=== PATIENT | female | born 1945 | race Caucasian/White ===

== ENCOUNTER 2022-08-20 13:45 | Inpatient (IN) | payer MEDICARE, OTHER ==
[~2022-08-20] VITALS: Ht 172.7 cm; Wt 66.2 kg
[2022-08-20] MEDS ORDERED: BLOOD SUGAR DIAGNOSTIC 1 EACH STRIP IN ONE (15:30)
[2022-08-20] MEDS ORDERED: MAGNESIUM HYDROXIDE 30 ML UDC PO PRN (15:30)
[2022-08-20] MEDS ORDERED: ACETAMINOPHEN 325 MG TABLET PO PRN (15:30)
[2022-08-20] MEDS ORDERED: TEMAZEPAM 7.5 MG CAPSULE PO PRN (15:30)
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
[2022-08-20 16:00] VITALS: BP 114/66
[2022-08-20 16:41] VITALS: BP 114/66
[2022-08-20] MEDS: LORAZEPAM 0.5 MG TABLET PO PRN (18:05)
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
[2022-08-20 19:59] VITALS: BP 98/52
[2022-08-21 07:41] LABS: CHOLESTEROL 150 mg/dL (<200); HDL CHOLESTEROL 58 mg/dL (40-60); LDL 82 mg/dL (0-99); TRIGLYCERIDES 56 mg/dL (30-150)
[2022-08-21 07:45] LABS: ALANINE AMINOTRANSFERASE 43 U/L (12-78); ALBUMIN 2.6 g/dL (3.4-5.0); ALKALINE PHOSPHATASE 181 U/L (46-116); ASPARTATE AMINOTRANSFERASE 44 U/L (15-37); BILIRUBIN,TOTAL 0.5 mg/dL (0.2-1.0); CARBON DIOXIDE 28 mmol/L (21-32); CHLORIDE 102 mmol/L (98-107); CREATININE 0.9 mg/dL (0.6-1.3); GLUCOSE 91 mg/dL (74-106); POTASSIUM 4.1 mmol/L (3.5-5.1); SODIUM SERUM 135 mmol/L (136-145); TOTAL PROTEIN, SERUM 8.8 g/dL (6.4-8.2); UREA NITROGEN, BLOOD 31 mg/dL (7-18)
[2022-08-21 08:00] VITALS: BP 108/63
--- NOTE | 2022-08-21 09:25 | NUR ---
RAFI Initial Discharge Plan: Patient was unable to give accurate address. Pt gave this law writer husbands number Jt ([phone]) and requested for this law writer to contact. Pt will possibly need a SNF. RAFI will work with the MD, family, and treatment team to help coordinate appropriate discharge.
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
--- NOTE | 2022-08-21 09:26 | NUR ---
Treatment Plan: Pt appeared confused and refused to sign the treatment plan.
--- NOTE | 2022-08-21 12:09 | NUR ---
SW Family Contact: Pt gave this business writer husbands number Jt ([phone]) but number did not go through. Invalid number.
[2022-08-21] MEDS: DIVALPROEX SODIUM 250 MG TABLET.DR PO SCH ×2 (12:44→17:29)
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
--- NOTE | 2022-08-21 15:50 | NUR ---
NURSE NOTE: TOOK PT TO CT VIA WHEELCHAIR. PT IN STABLE CONDITION. RETURNED TO GPS FLOOR (ACTIVITY ROOM) VIA WHEELCHAIR. PT IN STABLE COND. WILL CONT TO MONITOR.
[2022-08-21 16:00] VITALS: BP 100/50
--- NOTE | 2022-08-21 19:35 | NUR ---
RN OPENING NOTES; RECEIVED PT IN BED SLEEPING BUT EASY TO AROUSED NO SIGN SOB/DISTRESS NOTED,BREATHING EVEN AND UNLABORED,NO UNUSUAL BEHAVIOR AT THIS TIME,SAFETY MEASURE INPLACE,CALL LIGHT WITHIN REACH,WILL CONTINUE TO MONITOR.
[2022-08-21 20:00] VITALS: BP 100/58
[2022-08-22 08:00] VITALS: BP 99/63
[2022-08-22] MEDS: DIVALPROEX SODIUM 250 MG TABLET.DR PO SCH ×3 (08:43→16:51)
[2022-08-22 16:00] VITALS: BP 103/60
--- NOTE | 2022-08-22 18:03 | NUR ---
RN-NOTES PATIENT IS VISIBLE IN THE UNIT,A/O X2 GUARDED,NO ACUTE DISTRESS NOTED. COMPLIANT WITH MEDICATIONS.NOTED PATIENT WITH EPISODE OF CRYING. REDIRECTED AND REASSURED PATIENT.PATIENT IS AMBULATORY WITH STEADY GAIT. ALL NEEDS ATTENDED AND MET. WILL CONT. MONITORING FOR SAFETY AND BEHAVIOR. WILL ENDORSE TO INCOMING NURSE FOR CONTINUITY OF CARE.
--- NOTE | 2022-08-22 18:41 | NUR ---
RN-NOTES NOTED PATIENT VERY ANGRY AND AGITATED AFTER TALKING TO HER IN THE PHONE. REDIRECTED AND OFFERED ATIVAN BUT PATIENT REFUSED AND THROW THE ATIVAN ON THE FLOOR . STATED" I DON'T NEED IT AND I'M SORRY FOR MY BEHAVIOR, IT WON'T HAPPEN AGAIN". OFFERED X3.
[2022-08-22 20:00] VITALS: BP 123/59
[2022-08-23 08:00] VITALS: BP 98/58
[2022-08-23] MEDS: DIVALPROEX SODIUM 250 MG TABLET.DR PO SCH ×3 (08:33→16:35)
[2022-08-23] MEDS: LORAZEPAM 0.5 MG TABLET PO PRN ×2 (08:40→16:34)
--- NOTE | 2022-08-23 08:41 | NUR ---
SNF Referral: SW sent clinicals to [facility] to chidi Peña ([phone]) for placement. SW sent H & P, progress notes, and medication list.
--- NOTE | 2022-08-23 08:42 | NUR ---
RN-NOTES NOTED PATIENT WITH GUARDED AND IRRITABLE BEHAVIOR. ATIVAN 0.5MG P.O GIVEN PRN ORDER. WILL CONT. MONITORING FOR SAFETY AND BEHAVIOR.
--- NOTE | 2022-08-23 09:45 | NUR ---
RN-NOTES PATIENT IN THE ROOM LYING IN BED AWAKE, A/O X2 CALM,NO ACUTE DISTRESS NOTED.
[2022-08-23 16:00] VITALS: BP 110/62
--- NOTE | 2022-08-23 16:40 | NUR ---
RN-NOTES NOTED PATIENT ANXIOUS PACING IN AND OUT HER ROOM, ATIVAN 0.5MG P.O GIVEN PRN ORDER. WILL CONT. MONITORING FOR SAFETY AND BEHAVIOR.
--- NOTE | 2022-08-23 19:04 | NUR ---
RN-NOTES PATIENT IS VISIBLE IN THE UNIT,A/O X2 GUARDED,NO ACUTE DISTRESS NOTED. COMPLIANT WITH MEDICATIONS.NOTED PATIENT WITH EPISODE OF ANXIETY. REDIRECTED AND ANTI ANXIETY PRN MED. GIVEN.PATIENT IS AMBULATORY WITH STEADY GAIT. ALL NEEDS ATTENDED AND MET. WILL CONT. MONITORING FOR SAFETY AND BEHAVIOR. WILL ENDORSE TO INCOMING NURSE FOR CONTINUITY OF CARE.
[2022-08-23] MEDS: MAG HYDROX/AL HYDROX/SIMETH 30 ML UDC PO PRN (20:33)
[2022-08-23 20:47] VITALS: BP 106/62
[2022-08-24 08:00] VITALS: BP 109/62
[2022-08-24] MEDS: DIVALPROEX SODIUM 250 MG TABLET.DR PO SCH ×3 (09:01→17:39)
[2022-08-24 16:00] VITALS: BP 125/69
[2022-08-24] MEDS: MAG HYDROX/AL HYDROX/SIMETH 30 ML UDC PO PRN (19:38)
[2022-08-24 20:17] VITALS: BP 122/66
[2022-08-25] MEDS: DIVALPROEX SODIUM 250 MG TABLET.DR PO SCH ×3 (08:16→17:01)
[2022-08-25 08:27] VITALS: BP 99/55
--- NOTE | 2022-08-25 09:13 | NUR ---
RN-CO: RECEIVED PATIENT RESTING IN HER BED,A/O X2 GUARDED, NO ACUTE DISTRESS NOTED. COMPLIANT WITH DAILY MEDICATIONS.AMBULATORY STEADY GAIT.ALL NEEDS ATTENDED AND ANTICIPATED. WILL CONTINUE MONITORING Q15MIN FOR SAFETY AND BEHAVIOR.
[2022-08-25 16:00] VITALS: BP 128/63
[2022-08-25 21:01] VITALS: BP 140/64
[2022-08-26 08:00] VITALS: BP 98/52
--- NOTE | 2022-08-26 09:17 | NUR ---
Court Notification: RAFI contacted patient's Jt ([phone]) to notify of 0000 hearing. RAFI left a voicemail.
--- NOTE | 2022-08-26 09:44 | NUR ---
Court Hearing: Patient's court hearing for 4330 was today and it was upheld for GD.
[2022-08-26] MEDS: MAG HYDROX/AL HYDROX/SIMETH 30 ML UDC PO PRN (09:50)
[2022-08-26] MEDS: DIVALPROEX SODIUM 250 MG TABLET.DR PO SCH ×3 (09:50→16:59)
--- NOTE | 2022-08-26 09:56 | NUR ---
SNF Referral: RAFI sent clinicals to [facility] to chidi Peña ([phone]) for placement. RAFI sent H & P, progress notes, and medication list. Addendum: 08/26/22 at 0957 by RAFI [facility] SNF Contact: RAFI spoke with [facility] to chidi Peña ([phone]) who stated pt is accepted.
--- NOTE | 2022-08-26 09:57 | NUR ---
SNF Contact: SW spoke with [facility] to chidi Peña ([phone]) who stated pt is accepted.
[2022-08-26] MEDS: ESCITALOPRAM OXALATE (10 MG) 10 MG TABLET PO SCH (11:26)
[2022-08-26 16:00] VITALS: BP 113/72
[2022-08-26 19:35] VITALS: BP 144/57
[2022-08-26 19:41] VITALS: BP 144/51
[2022-08-26] MEDS: QUETIAPINE FUMARATE 25 MG TABLET PO SCH (21:11)
[2022-08-27 09:22] VITALS: BP 105/59
[2022-08-27] MEDS: DIVALPROEX SODIUM 250 MG TABLET.DR PO SCH ×3 (09:22→16:26)
[2022-08-27] MEDS: ESCITALOPRAM OXALATE (10 MG) 10 MG TABLET PO SCH (09:22)
[2022-08-27 16:00] VITALS: BP 111/61
[2022-08-27] MEDS: ENSURE ENLIVE 237 ML LIQUID (VANILLA) PO SCH (16:26)
[2022-08-27 19:55] VITALS: BP 111/54
[2022-08-27 20:57] VITALS: BP 111/54
[2022-08-27] MEDS: QUETIAPINE FUMARATE 25 MG TABLET PO SCH (21:40)
[2022-08-28 08:00] VITALS: BP 113/57
[2022-08-28] MEDS: ENSURE ENLIVE 237 ML LIQUID (VANILLA) PO SCH ×2 (08:04→16:15)
[2022-08-28] MEDS: ESCITALOPRAM OXALATE (10 MG) 10 MG TABLET PO SCH (08:38)
[2022-08-28] MEDS: DIVALPROEX SODIUM 250 MG TABLET.DR PO SCH ×3 (08:38→16:15)
[2022-08-28] MEDS ORDERED: VENLAFAXINE XR 75 MG CAP.SR.24H PO SCH (14:00)
[2022-08-28] MEDS: VENLAFAXINE XR 37.5 MG CAP.SR.24H PO SCH (14:33)
[2022-08-28 16:00] VITALS: BP 114/63
[2022-08-28 19:52] VITALS: BP 109/57
[2022-08-28] MEDS: QUETIAPINE FUMARATE 25 MG TABLET PO SCH (21:48)
[2022-08-29 08:00] VITALS: BP 115/62
[2022-08-29] MEDS: ENSURE ENLIVE 237 ML LIQUID (VANILLA) PO SCH ×2 (08:15→17:31)
[2022-08-29] MEDS: DIVALPROEX SODIUM 250 MG TABLET.DR PO SCH ×3 (08:27→16:33)
[2022-08-29] MEDS: VENLAFAXINE XR 37.5 MG CAP.SR.24H PO SCH (08:27)
[2022-08-29] MEDS: MAG HYDROX/AL HYDROX/SIMETH 30 ML UDC PO PRN (15:13)
--- NOTE | 2022-08-29 15:15 | NUR ---
RN-NOTES PATIENT C/O INDIGESTION. MAALOX 30ML GIVEN PRN ORDER.
[2022-08-29 16:00] VITALS: BP 135/63
--- NOTE | 2022-08-29 18:31 | NUR ---
RN-NOTES PATIENT IS VISIBLE IN THE UNIT A/O X2,QUIET,COOPERATIVE WITH THE STAFF AND CARE. COMPLIANT WITH MEDICATIONS. NEEDS MINIMAL ASSIST WITH ADL'S. AMBULATORY STEADY GAIT. ABLE TO MAKE NEEDS KNOWN TO THE STAFF.ALL NEEDS ATTENDED AND ANTICIPATED. WILL CONT. MONITORING FOR SAFETY FOR BEHAVIOR. WILL ENDORSE TO INCOMING NURSE FOR CONTINUITY OF CARE.
[2022-08-29 20:00] VITALS: BP 122/60
--- NOTE | 2022-08-29 20:09 | NUR ---
RN NOTES: PATIENT RESTING IN ROOM, AWAKE, VISIBLE IN THE UNIT, CONFUSED, FORGETFUL, DISORGANIZED, EASILY AGITATED,GUARDED, ANXIOUS AT TIMES BUT REDIRECTABLE AT THIS TIME. NO ACUTE DISTRESS NOTED.ENCOURAGED TO VERVALIZED ANY FEELING OR CONCERN, COMPLIANT WITH MEDICATIONS. SAFETY MEASURES IN PLACE. WILL CONTINUE. MONITORING Q 15 MIN FOR SAFETY AND BEHAVIOR.
[2022-08-29] MEDS: QUETIAPINE FUMARATE 25 MG TABLET PO SCH (21:10)
[2022-08-30 08:00] VITALS: BP 113/62
[2022-08-30] MEDS: VENLAFAXINE XR 37.5 MG CAP.SR.24H PO SCH (08:27)
[2022-08-30] MEDS: DIVALPROEX SODIUM 250 MG TABLET.DR PO SCH ×3 (08:27→16:26)
[2022-08-30] MEDS: ENSURE ENLIVE 237 ML LIQUID (VANILLA) PO SCH ×2 (08:27→17:22)
[2022-08-30] MEDS: MAG HYDROX/AL HYDROX/SIMETH 30 ML UDC PO PRN ×2 (15:32→20:35)
[2022-08-30 16:00] VITALS: BP 97/59
--- NOTE | 2022-08-30 18:55 | NUR ---
RN-NOTES PATIENT IS VISIBLE IN THE UNIT A/O X2,QUIET,STAYS IN THE ROOM PLAYING CARDS.COOPERATIVE WITH THE STAFF AND CARE. COMPLIANT WITH MEDICATIONS. NEEDS MINIMAL ASSIST WITH ADL'S. AMBULATORY STEADY GAIT. ABLE TO MAKE NEEDS KNOWN TO THE STAFF.ALL NEEDS ATTENDED AND ANTICIPATED. WILL CONT. MONITORING FOR SAFETY FOR BEHAVIOR. WILL ENDORSE TO INCOMING NURSE FOR CONTINUITY OF CARE.
--- NOTE | 2022-08-30 19:30 | NUR ---
GPS RN NOTE, RECEIVED PATIENT AWAKE AND IN BED, NO S/S OR COMPLAINTS OF PAIN AT THIS TIME. PATIENT IS DISPLAYING NO S/S OF APPARENT DISTRESS AT THIS TIME. PATIENT BREATHING IS UNLABORED WITH EQUAL RISE AND FALL OF THE CHEST. PATIENT IS ALERT AND ORIENTED X 2 ON ROOM AIR WITH A SPO2 97%. PATIENT IS COMPLIANT WITH MEDICATIONS, CALM, FORGETFUL, GUARDED, ISOLATIVE, MAKES NEEDS KNOWN, AND COOPERATIVE. PATIENT DENIES SUICIDAL AND HOMICIDAL IDEATIONS AT THIS TIME. PATIENT ASSISTED WITH TURNING AND REPOSITIONING Q2HR AND PRN FOR COMFORT AND CIRCULATION. PATIENT HAS NO NEEDS AT THIS TIME. PATIENT EDUCATED ON THE USE OF THE CALL TYLER. PATIENT BED SIDE RAILS UP X 2 FOR SAFETY. PATIENT BED IS LOCKED, LOW, WITH BED ALARM ON. WILL CONTINUE TO MONITOR THIS PATIENT Q15 MINUTES WITH THE HELP OF STAFF TO MAINTAIN SAFETY.
--- NOTE | 2022-08-30 20:35 | NUR ---
GPS RN NOTE, PATIENT HAS A COMPLAINT OF HAVING INDIGESTION AND IS REQUESTING MAALOX AT THIS TIME. PATIENT VITAL SIGNS ARE STABLE. GAVE MAALOX 30ML 1 UNIT DOSE PO Q4HR PRN ORDERED. WILL REASSESS PATIENT AND I WILL CONTINUE TO MONITOR THIS PATIENT WITH THE HELP OF STAFF.
[2022-08-30 20:56] VITALS: BP 125/60
[2022-08-30] MEDS: QUETIAPINE FUMARATE 25 MG TABLET PO SCH (21:26)
[2022-08-31 08:00] VITALS: BP 113/61
[2022-08-31] MEDS: ENSURE ENLIVE 237 ML LIQUID (VANILLA) PO SCH ×2 (08:11→16:40)
[2022-08-31] MEDS: VENLAFAXINE XR 37.5 MG CAP.SR.24H PO SCH (08:11)
[2022-08-31] MEDS: DIVALPROEX SODIUM 250 MG TABLET.DR PO SCH ×3 (08:11→16:40)
[2022-08-31 16:00] VITALS: BP 108/57
--- NOTE | 2022-08-31 18:51 | NUR ---
RN-NOTES PATIENT IS VISIBLE IN THE UNIT A/O X2,QUIET,COOPERATIVE WITH THE STAFF AND CARE. COMPLIANT WITH MEDICATIONS.SELF CARE . AMBULATORY STEADY GAIT. ABLE TO MAKE NEEDS KNOWN TO THE STAFF.ALL NEEDS ATTENDED AND ANTICIPATED. WILL CONT. MONITORING FOR SAFETY FOR BEHAVIOR. WILL ENDORSE TO INCOMING NURSE FOR CONTINUITY OF CARE.
[2022-08-31] MEDS: MAG HYDROX/AL HYDROX/SIMETH 30 ML UDC PO PRN (19:33)
[2022-08-31 20:28] VITALS: BP 107/57
[2022-08-31] MEDS: QUETIAPINE FUMARATE 25 MG TABLET PO SCH (21:12)
[2022-09-01] MEDS: ENSURE ENLIVE 237 ML LIQUID (VANILLA) PO SCH ×2 (07:44→17:13)
[2022-09-01 08:00] VITALS: BP 116/63
[2022-09-01] MEDS: VENLAFAXINE XR 37.5 MG CAP.SR.24H PO SCH (09:05)
[2022-09-01] MEDS: DIVALPROEX SODIUM 250 MG TABLET.DR PO SCH ×3 (09:07→17:13)
[2022-09-01] MEDS: MAG HYDROX/AL HYDROX/SIMETH 30 ML UDC PO PRN (14:45)
--- NOTE | 2022-09-01 14:45 | NUR ---
NURSE NOTE: PT C/O REFLUX AT THIS TIME. MAALOX ADMINISTERED ORDERED. PT JOLENE WELL. WILL CONT TO MONITOR.
--- NOTE | 2022-09-01 15:25 | NUR ---
NURSE NOTE: PT STATED THAT SHE FEELS MUCH BETTER. MAALOX EFFECTIVE AT THIS TIME. WILL CONT TO MONITOR.
[2022-09-01 16:00] VITALS: BP 116/64
[2022-09-01 19:59] VITALS: BP 115/59
[2022-09-01] MEDS ORDERED: QUETIAPINE FUMARATE 25 MG TABLET PO SCH ×2 (22:02→22:30)
[2022-09-01] MEDS ORDERED: QUETIAPINE FUMARATE 25 MG TABLET ONE (23:12)
[2022-09-02 08:00] VITALS: BP 119/66
--- NOTE | 2022-09-02 08:11 | NUR ---
SW Discharge Note: Patient will be discharged to [facility]F located at [address] [place] [id number]; ([phone]) via ambulance. Kathia chidi from [facility] ([phone]) accepted pt and is welcoming pt today. Pts Jt ([phone]) is aware. Pt appears to be alert and oriented x1. Pt denies visual/auditory hallucinations. Pt denies denies suicidal or homicidal ideation. Patient will continue to follow-up with (Psychiatrist) Dr. Ruffin [id number] [facility] [address], [place] [address]; ([phone]). (Spinning Frame Changer) Dr. Justice [id number] [facility] [address], [place] [address]; ([phone]).
[2022-09-02] MEDS: DIVALPROEX SODIUM 250 MG TABLET.DR PO SCH ×2 (08:42→13:13)
[2022-09-02] MEDS: VENLAFAXINE XR 37.5 MG CAP.SR.24H PO SCH (08:42)
[2022-09-02] MEDS: ENSURE ENLIVE 237 ML LIQUID (VANILLA) PO SCH (08:42)
--- NOTE | 2022-09-02 09:57 | NUR ---
RN-CHARGE: DR COUCH ORDERED TO DISCONTINUE HOLD AND DISCHARGE PATIENT TO [facility] AND DR JOSELITO RODRÍGUEZ MEDICALLY CLEARED THE PATIENT FOR DISCHARGE. NOTED
--- NOTE | 2022-09-02 15:29 | NUR ---
NURSE NOTE: 77 YEAR OLD FEMALE DISCHARGED TO [facility] SNF IN STABLE CONDITION. COMPLIANT WITH MEDS, COOPERATIVE WITH TREATMENT PLANS. PT DENIES SI/HI A THIS TIME. INSTRUCTED TO CALL 911 IF DEVELOPING SI/HI. BEHAVIOR IMPROVED, PSYCHIATRIC TX PLANS MET, MEDICAL TX PLANS DEFERRED FOR CONTINUAL MONITORING. EDUCATED PT ABOUT AFTER CARE PLAN AND COPY PROVIDED. RETURNED PERSONAL BELONGINGS TO PT. MEDICATIONS RECONCILED WITH DR COUCH AND DR YEE. REPORT GIVEN TO LILY KAM AT [facility] FOR CONTINUITY OF CARE. PT SIGNED DISCHARGE PAPERWORK. PT LEFT UNIT AT 1530 VIA AMBULANCE.
[2022-09-02 16:00] VITALS: BP 109/61
== END 2022-09-02 15:30 | DRG 885 ==
LOC: GPS 14:42
PROVIDERS: ADMIT Psychiatry & Neurology Psychosomatic Medicine
DX: F31.5 Bipolar disorder, current episode depressed, severe, with psychotic features (principal); R45.851 Suicidal ideations; F03.918 Unspecified dementia, unspecified severity, with other behavioral disturbance; F29 Unspecified psychosis not due to a substance or known physiological condition; F41.9 Anxiety disorder, unspecified; Z73.6 Limitation of activities due to disability; Z86.16 Personal history of COVID-19; Z90.710 Acquired absence of both cervix and uterus; Z98.890 Other specified postprocedural states; F10.11 Alcohol abuse, in remission; E11.9 Type 2 diabetes mellitus without complications; Z91.51 Personal history of suicidal behavior
CPT/HCPCS: 36415; 70450-TC; 80048-TC; 80053-TC; 80061-TC; 80164-TC; 82962-TC; 87081-TC; 97116-TC; 97530-TC

== ENCOUNTER 2023-07-08 08:39 | Inpatient (IN) | payer MEDICARE, OTHER ==
[~2023-07-08] VITALS: Ht 172.7 cm; Wt 60.8 kg
[2023-07-08 09:22] LABS: BASOPHILS # (AUTO) 0.1 K/uL (0.0-0.2); EOSINOPHILS # (AUTO) 0.2 K/uL (0.0-0.7); EOSINOPHILS % (AUTO) 3.1 % (0.0-6.0); HEMATOCRIT 34 % (33-45); HEMOGLOBIN 11.5 g/dL (11.5-14.8); LYMPHOCYTES # (AUTO) 2.3 K/uL (0.8-4.8); LYMPHOCYTES % (AUTO) 45.5 % (20.0-44.0); MEAN CORPUSCULAR HEMOGLOBIN 36 PG (26.0-33.0); MEAN CORPUSCULAR HGB CONC 34 g/dl (31.0-36.0); MEAN CORPUSCULAR VOLUME 107 fL (82-100); MONOCYTES # (AUTO) 0.4 K/uL (0.1-1.30); MONOCYTES % (AUTO) 8.8 % (2.0-12.0); NEUTROPHILS # (AUTO) 2.1 K/uL (1.8-8.9); NEUTROPHILS % (AUTO) 41.6 % (43.0-81.0); PLATELET COUNT (AUTO) 182 K/uL (150-450); RED BLOOD CELL COUNT(AUTO) 3.19 MIL/uL (4.0-5.2); RED CELL DISTRIBUTION WIDTH 16.3 % (11.5-15.0); WHITE BLOOD COUNT (AUTO) 5.1 K/uL (4.3-11.0)
[2023-07-08 09:25] LABS: APPEARANCE,URINE CLEAR (CLEAR); BILIRUBIN,URINE NEGATIVE (NEGATIVE); BLOOD, URINE TRACE-INTA Ery/uL (NEGATIVE); COLOR,URINE YELLOW (YELLOW); KETONES,URINE NEGATIVE (NEGATIVE); LEUKOCYTE ESTERASE ,URINE TRACE (NEGATIVE); NITRITE, URINE NEGATIVE (NEGATIVE); PROTEIN,URINE 1+ mg/dl (NEGATIVE); UGLUCOSE NEGATIVE (NEGATIVE); UROBILINOGEN,URINE 0.2 EU/dL (0.2)
[2023-07-08 09:42] LABS: CALCIUM, SERUM 9.6 mg/dL (8.5-10.1); CARBON DIOXIDE 25 mmol/L (21-32); CHLORIDE 97 mmol/L (98-107); CREATININE 1.1 mg/dL (0.6-1.3); GLUCOSE 138 mg/dL (74-106); POTASSIUM 3.9 mmol/L (3.5-5.1); SODIUM SERUM 130 mmol/L (136-145); UREA NITROGEN, BLOOD 25 mg/dL (7-18)
[2023-07-08 09:44] LABS: AMPHETAMINE, URINE NEGATIVE (NEGATIVE); BARBITURATE, URINE NEGATIVE (NEGATIVE); BENZODIAZEPINE, URINE NEGATIVE (NEGATIVE); CANNABINOID, URINE NEGATIVE (NEGATIVE); COCCAINE, URINE NEGATIVE (NEGATIVE); OPIATE, URINE NEGATIVE (NEGATIVE); PHENCYCLIDINE SCREEN,URINE NEGATIVE (NEGATIVE)
[2023-07-08 09:53] LABS: ALANINE AMINOTRANSFERASE 39 U/L (12-78); ALBUMIN 2.8 g/dL (3.4-5.0); ALKALINE PHOSPHATASE 246 U/L (46-116); ASPARTATE AMINOTRANSFERASE 41 U/L (15-37); BILIRUBIN,DIRECT 0.2 mg/dL (0.0-0.2); BILIRUBIN,TOTAL 0.4 mg/dL (0.2-1.0); TOTAL PROTEIN, SERUM 12.4 g/dL (6.4-8.2)
[2023-07-08 09:54] LABS: ACETAMINOPHEN 0 ug/ml (10-30); ALCOHOL, BLOOD < 3 mg/dL (0-10); BAND % (MANUAL) 1 % (0.0-5.0); EOSINOPHILS % (MANUAL) 3 % (0-4); LYMPHOCYTES % (MANUAL) 36 % (16-48); MONOCYTES % (MANUAL) 4 % (0-11.0); NEUTROPHILS % (MANUAL) 56 (42-76); PLATELET ESTIMATE ADEQUATE; SALICYLATE < 2.3 mg/dL (2.8-20.0)
[2023-07-08 10:08] LABS: ADD URINE CULTURE NO; BACTERIA,URINE Few /HPF (None Seen); MUCUS,URINE Few /LPF (None Seen); RBC,URINE 0-2 /HPF (0-2); WBC,URINE 0-2 /HPF (0-3)
[2023-07-08 13:12] VITALS: O2SAT 95
[2023-07-08] MEDS ORDERED: MULT-213 PO (13:27)
[2023-07-08] MEDS ORDERED: QUET25TA PO (13:27)
[2023-07-08] MEDS ORDERED: VENL37.591 PO (13:27)
[2023-07-08] MEDS ORDERED: DIVA-76 PO (13:27)
[2023-07-08] MEDS ORDERED: TEMAZEPAM 7.5 MG CAPSULE PO PRN (14:30)
[2023-07-08] MEDS ORDERED: MAGNESIUM HYDROXIDE 30 ML UDC PO PRN (14:30)
[2023-07-08] MEDS ORDERED: ACETAMINOPHEN 325 MG TABLET PO PRN (14:30)
[2023-07-08] MEDS ORDERED: BLOOD SUGAR DIAGNOSTIC 1 EACH STRIP IN ONE (14:30)
[2023-07-08] MEDS ORDERED: MAG HYDROX/AL HYDROX/SIMETH 30 ML UDC PO PRN (14:30)
[2023-07-08] MEDS ORDERED: LORAZEPAM 0.5 MG TABLET PO PRN (14:30)
[2023-07-08 16:00] VITALS: BP 106/56; TEMP 97.7; O2SAT 95
[2023-07-08] MEDS ORDERED: ACET-868 PO (17:49)
[2023-07-08] MEDS ORDERED: TEMA7.5C PO (17:49)
[2023-07-08] MEDS ORDERED: LORA-258 PO (17:49)
[2023-07-08] MEDS ORDERED: MAG30ORA PO (17:49)
[2023-07-08] MEDS ORDERED: MAGN400O6 PO (17:57)
[2023-07-17] MEDS ORDERED: MIDAZOLAM HCL 2 MG/2ML VIAL IV PRN (10:00)
[2023-07-17] MEDS ORDERED: FLUMAZENIL 0.5 MG VIAL IV PRN (10:00)
[2023-07-17] MEDS ORDERED: NALOXONE PREFILLED SYRINGE 2 MG/2 ML SYRINGE IV PRN (10:00)
[2023-07-17] MEDS ORDERED: FENTANYL PF 250MCG/5ML AMPUL IV PRN (10:00)
[2023-07-17] MEDS ORDERED: LIDOCAINE 1% INJ 50 ML MDV IJ ONE (13:39)
== END 2023-07-08 17:35 | disposition home or self-care (01) | DRG 885 ==
LOC: ER 08:43 → GPS 13:09
PROVIDERS: ADMIT Psychiatry & Neurology Psychosomatic Medicine; ATTEND Internal Medicine
DX: F29 Unspecified psychosis not due to a substance or known physiological condition (principal); F03.94 Unspecified dementia, unspecified severity, with anxiety; F03.93 Unspecified dementia, unspecified severity, with mood disturbance; F32.A Depression, unspecified; E11.9 Type 2 diabetes mellitus without complications; J44.9 Chronic obstructive pulmonary disease, unspecified; Z90.711 Acquired absence of uterus with remaining cervical stump; Z79.899 Other long term (current) drug therapy; Z98.890 Other specified postprocedural states
CPT/HCPCS: 36415; 71045-TC; 80048-TC; 80076-TC; 81001; 82962-TC; 85025-TC; G0480

== ENCOUNTER 2023-07-08 17:39 | Inpatient (IN) | payer MEDICARE, OTHER ==
[2023-07-08] VITALS (7 sets, daily range): BP systolic 105–129; BP diastolic 56–77; TEMP 97.2; O2SAT 97–99
[~2023-07-08] VITALS: Ht 172.7 cm; Wt 62.6 kg
[~2023-07-08 17:39] MED LIST: DIVA-76 PO; MULT-213 PO; QUET25TA PO; VENL37.591 PO
[2023-07-08] MEDS ORDERED: TEMA7.5C PO (17:49)
[2023-07-08] MEDS ORDERED: LORA-258 PO (17:49)
[2023-07-08] MEDS ORDERED: ACET-868 PO (17:49)
[2023-07-08] MEDS ORDERED: MAG30ORA PO (17:49)
[2023-07-08] MEDS ORDERED: MAGN400O6 PO (17:57)
[2023-07-08] MEDS ORDERED: methylPREDNISolone SOD SUCC 125 MG/2ML VIAL IV SCH (18:00)
[2023-07-08] MEDS: ENOXAPARIN SODIUM 40 MG/0.4 ML DISP.SYRIN SQ SCH (18:30)
[2023-07-08] MEDS ORDERED: ONDANSETRON HCL/PF 4 MG/2 ML VIAL IVP PRN (18:30)
[2023-07-08] MEDS: ALBUTEROL HALF STRENGTH 1.25 MG/3 ML VIAL.NEB NEB SCH (19:55)
[2023-07-08] MEDS: IPRATROPIUM NEB FS 0.5 MG/2.5 ML AMPUL.NEB NEB SCH (19:55)
[2023-07-08] MEDS: MORPHINE SULFATE INJ 2 MG/ML DISP.SYRIN IV PRN ×3 (20:21→22:24)
[2023-07-08 21:16] LABS: CALCIUM, SERUM 9.3 mg/dL (8.5-10.1); CARBON DIOXIDE 28 mmol/L (21-32); CHLORIDE 99 mmol/L (98-107); CREATININE 1.1 mg/dL (0.6-1.3); GLUCOSE 105 mg/dL (74-106); POTASSIUM 4.7 mmol/L (3.5-5.1); SODIUM SERUM 133 mmol/L (136-145); UREA NITROGEN, BLOOD 34 mg/dL (7-18)
[2023-07-08] MEDS: methylPREDNISolone SOD SUCC 40 MG/ML VIAL IV SCH (22:07)
[2023-07-09] VITALS (20 sets, daily range): BP systolic 103–145; BP diastolic 57–127; TEMP 97.4–99; O2SAT 94–100
[2023-07-09] MEDS: MORPHINE SULFATE INJ 2 MG/ML DISP.SYRIN IV PRN ×2 (01:22→14:30)
[2023-07-09] MEDS: IPRATROPIUM NEB FS 0.5 MG/2.5 ML AMPUL.NEB NEB SCH ×4 (01:52→19:26)
[2023-07-09] MEDS: ALBUTEROL HALF STRENGTH 1.25 MG/3 ML VIAL.NEB NEB SCH ×4 (01:53→19:26)
[2023-07-09] MEDS: IV NS 0.9% 1,000 ML IV PRN ×2 (02:05→16:32)
[2023-07-09 04:30] LABS: BASOPHILS % (AUTO) 0.1 % (0.0-2.0); EOSINOPHILS % (AUTO) 0.1 % (0.0-6.0); HEMATOCRIT 30 % (33-45); HEMOGLOBIN 10.4 g/dL (11.5-14.8); LYMPHOCYTES # (AUTO) 0.7 K/uL (0.8-4.8); LYMPHOCYTES % (AUTO) 19.7 % (20.0-44.0); MEAN CORPUSCULAR HEMOGLOBIN 36 PG (26.0-33.0); MEAN CORPUSCULAR HGB CONC 34 g/dl (31.0-36.0); MEAN CORPUSCULAR VOLUME 106 fL (82-100); MONOCYTES # (AUTO) 0.1 K/uL (0.1-1.30); MONOCYTES % (AUTO) 1.8 % (2.0-12.0); NEUTROPHILS # (AUTO) 2.6 K/uL (1.8-8.9); NEUTROPHILS % (AUTO) 78.3 % (43.0-81.0); PLATELET COUNT (AUTO) 144 K/uL (150-450); RED BLOOD CELL COUNT(AUTO) 2.87 MIL/uL (4.0-5.2); RED CELL DISTRIBUTION WIDTH 16.1 % (11.5-15.0); WHITE BLOOD COUNT (AUTO) 3.4 K/uL (4.3-11.0)
[2023-07-09 04:53] LABS: ALANINE AMINOTRANSFERASE 39 U/L (12-78); ALBUMIN 2.6 g/dL (3.4-5.0); ALKALINE PHOSPHATASE 207 U/L (46-116); ASPARTATE AMINOTRANSFERASE 34 U/L (15-37); BILIRUBIN,TOTAL 0.4 mg/dL (0.2-1.0); CALCIUM, SERUM 9.2 mg/dL (8.5-10.1); CARBON DIOXIDE 29 mmol/L (21-32); CHLORIDE 99 mmol/L (98-107); CREATININE 1.1 mg/dL (0.6-1.3); GLUCOSE 140 mg/dL (74-106); MAGNESIUM 1.7 mg/dL (1.8-2.4); PHOSPHORUS 4.2 mg/dL (2.5-4.9); POTASSIUM 5.1 mmol/L (3.5-5.1); SODIUM SERUM 132 mmol/L (136-145); TOTAL PROTEIN, SERUM 11.3 g/dL (6.4-8.2); UREA NITROGEN, BLOOD 37 mg/dL (7-18)
[2023-07-09 05:34] LABS: ABG BASE EXCESS 1.6 mmol/L; ABG OXYGEN SATURATION 90.8 % (92.0-98.5); ABG PCO2 50.5 mmHg (35.0-45.0); ABG PH 7.359 (7.350-7.450); ABG PO2 67.3 mmHg (75.0-100.0); ABG TOTAL HEMOGLOBIN 12.3 G/dL (12.0-16.0); AaDO2 72.8 mmHg; COHb 0.6 % (0.5-1.5); MetHb 0.3 % (0.0-1.5); SITE, ABG Left Radial; VENT MODE, BG 2LPM N/C
[2023-07-09] MEDS ORDERED: Z GUARD REMEDY 4 OZ OINT TP PRN (08:30)
[2023-07-09] MEDS: methylPREDNISolone SOD SUCC 40 MG/ML VIAL IV SCH ×2 (08:53→16:21)
[2023-07-09] MEDS ORDERED: MAGNESIUM OXIDE 400 MG TABLET PO ONE (09:00)
[2023-07-09] MEDS: Z GUARD REMEDY 4 OZ OINT TP SCH (09:46)
[2023-07-09] MEDS: ACETAMINOPHEN 325 MG TABLET PO PRN (15:47)
[2023-07-09] MEDS: ENOXAPARIN SODIUM 40 MG/0.4 ML DISP.SYRIN SQ SCH (20:55)
[2023-07-10] VITALS (14 sets, daily range): BP systolic 112–154; BP diastolic 56–75; TEMP 98.2–98.9; O2SAT 94–100
[2023-07-10] MEDS: ALBUTEROL HALF STRENGTH 1.25 MG/3 ML VIAL.NEB NEB SCH ×4 (01:18→20:05)
[2023-07-10] MEDS: IPRATROPIUM NEB FS 0.5 MG/2.5 ML AMPUL.NEB NEB SCH ×4 (01:18→20:05)
[2023-07-10] MEDS: MORPHINE SULFATE INJ 2 MG/ML DISP.SYRIN IV PRN (01:37)
[2023-07-10] MEDS: IV NS 0.9% 1,000 ML IV PRN ×2 (04:54→17:58)
[2023-07-10 08:38] LABS: CALCIUM, SERUM 8.8 mg/dL (8.5-10.1); CARBON DIOXIDE 26 mmol/L (21-32); CHLORIDE 103 mmol/L (98-107); GLUCOSE 112 mg/dL (74-106); POTASSIUM 4.5 mmol/L (3.5-5.1); SODIUM SERUM 134 mmol/L (136-145); UREA NITROGEN, BLOOD 34 mg/dL (7-18)
[2023-07-10 08:45] LABS: ALANINE AMINOTRANSFERASE 28 U/L (12-78); ALBUMIN 2.4 g/dL (3.4-5.0); ALKALINE PHOSPHATASE 161 U/L (46-116); ASPARTATE AMINOTRANSFERASE 23 U/L (15-37); BILIRUBIN,TOTAL 0.2 mg/dL (0.2-1.0)
[2023-07-10] MEDS: methylPREDNISolone SOD SUCC 40 MG/ML VIAL IV SCH (08:47)
[2023-07-10] MEDS: Z GUARD REMEDY 4 OZ OINT TP SCH (08:47)
[2023-07-10 09:08] LABS: BASOPHILS % (AUTO) 0.3 % (0.0-2.0); EOSINOPHILS % (AUTO) 0.7 % (0.0-6.0); HEMATOCRIT 30 % (33-45); LYMPHOCYTES # (AUTO) 1.8 K/uL (0.8-4.8); LYMPHOCYTES % (AUTO) 42.6 % (20.0-44.0); MEAN CORPUSCULAR HEMOGLOBIN 36 PG (26.0-33.0); MEAN CORPUSCULAR HGB CONC 34 g/dl (31.0-36.0); MEAN CORPUSCULAR VOLUME 107 fL (82-100); MONOCYTES # (AUTO) 0.4 K/uL (0.1-1.30); NEUTROPHILS % (AUTO) 47.4 % (43.0-81.0); PLATELET COUNT (AUTO) 140 K/uL (150-450); RED BLOOD CELL COUNT(AUTO) 2.79 MIL/uL (4.0-5.2); RED CELL DISTRIBUTION WIDTH 15.8 % (11.5-15.0); WHITE BLOOD COUNT (AUTO) 4.2 K/uL (4.3-11.0)
[2023-07-10] MEDS: ACETAMINOPHEN 325 MG TABLET PO PRN ×3 (09:36→21:43)
[2023-07-10] MEDS: ENOXAPARIN SODIUM 40 MG/0.4 ML DISP.SYRIN SQ SCH (20:42)
[2023-07-11] VITALS (14 sets, daily range): BP systolic 131–160; BP diastolic 58–87; TEMP 97.6–99; O2SAT 94–100
[2023-07-11] MEDS: IPRATROPIUM NEB FS 0.5 MG/2.5 ML AMPUL.NEB NEB SCH ×4 (00:49→20:27)
[2023-07-11] MEDS: ALBUTEROL HALF STRENGTH 1.25 MG/3 ML VIAL.NEB NEB SCH ×4 (00:49→20:27)
[2023-07-11] MEDS: ACETAMINOPHEN 325 MG TABLET PO PRN ×2 (05:02→19:32)
[2023-07-11] MEDS: IV NS 0.9% 1,000 ML IV PRN ×2 (05:28→19:25)
[2023-07-11 06:44] LABS: BASOPHILS % (AUTO) 0.4 % (0.0-2.0); EOSINOPHILS # (AUTO) 0.1 K/uL (0.0-0.7); EOSINOPHILS % (AUTO) 1.1 % (0.0-6.0); HEMATOCRIT 32 % (33-45); HEMOGLOBIN 10.6 g/dL (11.5-14.8); LYMPHOCYTES # (AUTO) 2.4 K/uL (0.8-4.8); MEAN CORPUSCULAR HEMOGLOBIN 36 PG (26.0-33.0); MEAN CORPUSCULAR HGB CONC 34 g/dl (31.0-36.0); MEAN CORPUSCULAR VOLUME 107 fL (82-100); MONOCYTES # (AUTO) 0.5 K/uL (0.1-1.30); MONOCYTES % (AUTO) 9.5 % (2.0-12.0); NEUTROPHILS # (AUTO) 2.5 K/uL (1.8-8.9); PLATELET COUNT (AUTO) 145 K/uL (150-450); RED BLOOD CELL COUNT(AUTO) 2.94 MIL/uL (4.0-5.2); WHITE BLOOD COUNT (AUTO) 5.5 K/uL (4.3-11.0)
[2023-07-11 07:27] LABS: THYROID STIMULATING HORMONE 1.959 uIU/mL (0.358-3.74)
[2023-07-11 08:12] LABS: ALANINE AMINOTRANSFERASE 29 U/L (12-78); ALBUMIN 2.5 g/dL (3.4-5.0); ALKALINE PHOSPHATASE 165 U/L (46-116); ASPARTATE AMINOTRANSFERASE 31 U/L (15-37); BILIRUBIN,TOTAL 0.2 mg/dL (0.2-1.0); CARBON DIOXIDE 24 mmol/L (21-32); CHLORIDE 102 mmol/L (98-107); CREATININE 0.8 mg/dL (0.6-1.3); GLUCOSE 88 mg/dL (74-106); MAGNESIUM 1.7 mg/dL (1.8-2.4); PHOSPHORUS 2.4 mg/dL (2.5-4.9); POTASSIUM 3.8 mmol/L (3.5-5.1); SODIUM SERUM 135 mmol/L (136-145); TOTAL PROTEIN, SERUM 10.4 g/dL (6.4-8.2); UREA NITROGEN, BLOOD 20 mg/dL (7-18)
[2023-07-11] MEDS: Z GUARD REMEDY 4 OZ OINT TP SCH (08:37)
[2023-07-11] MEDS: methylPREDNISolone SOD SUCC 40 MG/ML VIAL IV SCH (09:00)
[2023-07-11] MEDS ORDERED: MAGNESIUM OXIDE 400 MG TABLET PO ONE (10:00)
[2023-07-11 11:35] LABS: ANISOCYTOSIS 1+; BASOPHILS % (MANUAL) 0 % (0.0-2.0); EOSINOPHILS % (MANUAL) 3 % (0-4); LYMPHOCYTES % (MANUAL) 39 % (16-48); MONOCYTES % (MANUAL) 7 % (0-11.0); NEUTROPHILS % (MANUAL) 51 (42-76); PLATELET ESTIMATE ADEQUATE
[2023-07-11] MEDS: DIVALPROEX SODIUM 250 MG TABLET.DR PO SCH ×2 (13:32→16:21)
[2023-07-11] MEDS ORDERED: MAG HYDROX/AL HYDROX/SIMETH 30 ML UDC PO PRN (15:00)
[2023-07-11] MEDS ORDERED: NEUTRA PHOS 1 POWD.PACKET PO ONE (16:30)
[2023-07-11] MEDS: ENOXAPARIN SODIUM 40 MG/0.4 ML DISP.SYRIN SQ SCH (21:24)
[2023-07-12] VITALS (13 sets, daily range): BP systolic 98–143; BP diastolic 61–69; TEMP 97.5–98.8; O2SAT 95–100
[2023-07-12] MEDS: IPRATROPIUM NEB FS 0.5 MG/2.5 ML AMPUL.NEB NEB SCH ×4 (00:54→20:34)
[2023-07-12] MEDS: ALBUTEROL HALF STRENGTH 1.25 MG/3 ML VIAL.NEB NEB SCH ×4 (00:54→20:35)
[2023-07-12] MEDS: IV NS 0.9% 1,000 ML IV PRN (05:23)
[2023-07-12 06:11] LABS: BASOPHILS % (AUTO) 0.3 % (0.0-2.0); HEMATOCRIT 34 % (33-45); HEMOGLOBIN 11.4 g/dL (11.5-14.8); LYMPHOCYTES # (AUTO) 1.8 K/uL (0.8-4.8); LYMPHOCYTES % (AUTO) 14.2 % (20.0-44.0); MEAN CORPUSCULAR HEMOGLOBIN 36 PG (26.0-33.0); MEAN CORPUSCULAR HGB CONC 33 g/dl (31.0-36.0); MEAN CORPUSCULAR VOLUME 107 fL (82-100); MONOCYTES # (AUTO) 1.6 K/uL (0.1-1.30); MONOCYTES % (AUTO) 12.5 % (2.0-12.0); NEUTROPHILS # (AUTO) 9.2 K/uL (1.8-8.9); PLATELET COUNT (AUTO) 142 K/uL (150-450); RED BLOOD CELL COUNT(AUTO) 3.21 MIL/uL (4.0-5.2); RED CELL DISTRIBUTION WIDTH 16.4 % (11.5-15.0); WHITE BLOOD COUNT (AUTO) 12.6 K/uL (4.3-11.0)
[2023-07-12 06:30] LABS: ALBUMIN 2.4 g/dL (3.4-5.0); BILIRUBIN,TOTAL 0.7 mg/dL (0.2-1.0); CALCIUM, SERUM 8.7 mg/dL (8.5-10.1); MAGNESIUM 1.5 mg/dL (1.8-2.4); PHOSPHORUS 2.6 mg/dL (2.5-4.9); POTASSIUM 3.9 mmol/L (3.5-5.1); TOTAL PROTEIN, SERUM 10.2 g/dL (6.4-8.2)
[2023-07-12] MEDS: MORPHINE SULFATE INJ 2 MG/ML DISP.SYRIN IV PRN (07:12)
[2023-07-12] MEDS: Z GUARD REMEDY 4 OZ OINT TP SCH (08:33)
[2023-07-12] MEDS: DIVALPROEX SODIUM 250 MG TABLET.DR PO SCH ×3 (08:35→16:37)
[2023-07-12] MEDS: methylPREDNISolone SOD SUCC 40 MG/ML VIAL IV SCH (08:36)
[2023-07-12] MEDS: ACETAMINOPHEN 325 MG TABLET PO PRN (11:34)
[2023-07-12] MEDS ORDERED: MAGNESIUM OXIDE 400 MG TABLET PO ONE (12:00)
[2023-07-12] MEDS: QUETIAPINE FUMARATE 25 MG TABLET PO SCH ×2 (17:57→21:49)
[2023-07-12] MEDS: ENOXAPARIN SODIUM 40 MG/0.4 ML DISP.SYRIN SQ SCH (21:50)
[2023-07-13] VITALS (14 sets, daily range): BP systolic 104–120; BP diastolic 50–62; TEMP 97.7–97.9; O2SAT 94–99
[2023-07-13] MEDS: IPRATROPIUM NEB FS 0.5 MG/2.5 ML AMPUL.NEB NEB SCH ×4 (01:30→20:28)
[2023-07-13] MEDS: ALBUTEROL HALF STRENGTH 1.25 MG/3 ML VIAL.NEB NEB SCH ×4 (01:30→20:28)
[2023-07-13] MEDS: ACETAMINOPHEN 325 MG TABLET PO PRN (06:47)
[2023-07-13 07:26] LABS: BASOPHILS % (AUTO) 0.2 % (0.0-2.0); EOSINOPHILS % (AUTO) 0.2 % (0.0-6.0); HEMATOCRIT 35 % (33-45); HEMOGLOBIN 11.6 g/dL (11.5-14.8); LYMPHOCYTES # (AUTO) 2.2 K/uL (0.8-4.8); LYMPHOCYTES % (AUTO) 11.4 % (20.0-44.0); MEAN CORPUSCULAR HEMOGLOBIN 36 PG (26.0-33.0); MEAN CORPUSCULAR HGB CONC 33 g/dl (31.0-36.0); MEAN CORPUSCULAR VOLUME 108 fL (82-100); MONOCYTES # (AUTO) 1.4 K/uL (0.1-1.30); MONOCYTES % (AUTO) 7.4 % (2.0-12.0); NEUTROPHILS # (AUTO) 15.8 K/uL (1.8-8.9); NEUTROPHILS % (AUTO) 80.8 % (43.0-81.0); PLATELET COUNT (AUTO) 148 K/uL (150-450); RED BLOOD CELL COUNT(AUTO) 3.27 MIL/uL (4.0-5.2); RED CELL DISTRIBUTION WIDTH 16.2 % (11.5-15.0); WHITE BLOOD COUNT (AUTO) 19.5 K/uL (4.3-11.0)
[2023-07-13] MEDS: Z GUARD REMEDY 4 OZ OINT TP SCH (08:19)
[2023-07-13] MEDS: DIVALPROEX SODIUM 250 MG TABLET.DR PO SCH ×3 (08:52→17:30)
[2023-07-13] MEDS: methylPREDNISolone SOD SUCC 40 MG/ML VIAL IV SCH (08:52)
[2023-07-13] MEDS: QUETIAPINE FUMARATE 25 MG TABLET PO SCH ×3 (08:52→21:16)
[2023-07-13] MEDS ORDERED: MAGNESIUM OXIDE 400 MG TABLET PO ONE (11:00)
[2023-07-13] MEDS: ENOXAPARIN SODIUM 40 MG/0.4 ML DISP.SYRIN SQ SCH (21:17)
[2023-07-14] VITALS (12 sets, daily range): BP systolic 106–128; BP diastolic 57–69; TEMP 97.7–98.6; O2SAT 93–100
[2023-07-14] MEDS: ALBUTEROL HALF STRENGTH 1.25 MG/3 ML VIAL.NEB NEB SCH ×4 (01:39→19:30)
[2023-07-14] MEDS: IPRATROPIUM NEB FS 0.5 MG/2.5 ML AMPUL.NEB NEB SCH ×4 (01:39→19:30)
[2023-07-14] MEDS: QUETIAPINE FUMARATE 25 MG TABLET PO SCH ×3 (08:11→20:55)
[2023-07-14] MEDS: DIVALPROEX SODIUM 250 MG TABLET.DR PO SCH ×3 (08:11→16:01)
[2023-07-14] MEDS: predniSONE 20 MG TABLET PO SCH (08:11)
[2023-07-14] MEDS: Z GUARD REMEDY 4 OZ OINT TP SCH (08:18)
[2023-07-14 09:22] LABS: HEMATOCRIT 31 % (33-45); LYMPHOCYTES # (AUTO) 1.4 K/uL (0.8-4.8); LYMPHOCYTES % (AUTO) 11.9 % (20.0-44.0); MEAN CORPUSCULAR HEMOGLOBIN 35 PG (26.0-33.0); MEAN CORPUSCULAR HGB CONC 33 g/dl (31.0-36.0); MEAN CORPUSCULAR VOLUME 107 fL (82-100); MONOCYTES # (AUTO) 0.7 K/uL (0.1-1.30); MONOCYTES % (AUTO) 6.3 % (2.0-12.0); NEUTROPHILS # (AUTO) 9.3 K/uL (1.8-8.9); NEUTROPHILS % (AUTO) 81.8 % (43.0-81.0); PLATELET COUNT (AUTO) 142 K/uL (150-450); RED BLOOD CELL COUNT(AUTO) 2.87 MIL/uL (4.0-5.2); WHITE BLOOD COUNT (AUTO) 11.4 K/uL (4.3-11.0)
[2023-07-14] MEDS: ACETAMINOPHEN 325 MG TABLET PO PRN (11:26)
[2023-07-14] MEDS: ENOXAPARIN SODIUM 40 MG/0.4 ML DISP.SYRIN SQ SCH (20:57)
[2023-07-15] VITALS (15 sets, daily range): BP systolic 107–158; BP diastolic 60–87; TEMP 98.2–101.1; O2SAT 95–100
[2023-07-15] MEDS: MORPHINE SULFATE INJ 2 MG/ML DISP.SYRIN IV PRN (00:56)
[2023-07-15] MEDS: IPRATROPIUM NEB FS 0.5 MG/2.5 ML AMPUL.NEB NEB SCH ×4 (02:27→19:44)
[2023-07-15] MEDS: ALBUTEROL HALF STRENGTH 1.25 MG/3 ML VIAL.NEB NEB SCH ×4 (02:27→19:43)
[2023-07-15] MEDS: ACETAMINOPHEN 325 MG TABLET PO PRN (05:04)
[2023-07-15 06:33] LABS: BASOPHILS % (AUTO) 0.1 % (0.0-2.0); EOSINOPHILS # (AUTO) 0.1 K/uL (0.0-0.7); EOSINOPHILS % (AUTO) 0.7 % (0.0-6.0); HEMATOCRIT 34 % (33-45); HEMOGLOBIN 11.6 g/dL (11.5-14.8); LYMPHOCYTES # (AUTO) 1.6 K/uL (0.8-4.8); LYMPHOCYTES % (AUTO) 14.3 % (20.0-44.0); MEAN CORPUSCULAR HEMOGLOBIN 36 PG (26.0-33.0); MEAN CORPUSCULAR HGB CONC 34 g/dl (31.0-36.0); MEAN CORPUSCULAR VOLUME 107 fL (82-100); MONOCYTES # (AUTO) 0.9 K/uL (0.1-1.30); MONOCYTES % (AUTO) 7.9 % (2.0-12.0); NEUTROPHILS # (AUTO) 8.8 K/uL (1.8-8.9); PLATELET COUNT (AUTO) 169 K/uL (150-450); RED BLOOD CELL COUNT(AUTO) 3.21 MIL/uL (4.0-5.2); RED CELL DISTRIBUTION WIDTH 15.7 % (11.5-15.0); WHITE BLOOD COUNT (AUTO) 11.4 K/uL (4.3-11.0)
[2023-07-15] MEDS: QUETIAPINE FUMARATE 25 MG TABLET PO SCH ×3 (08:03→20:05)
[2023-07-15] MEDS: Z GUARD REMEDY 4 OZ OINT TP SCH (08:03)
[2023-07-15] MEDS: predniSONE 20 MG TABLET PO SCH (08:04)
[2023-07-15] MEDS: DIVALPROEX SODIUM 250 MG TABLET.DR PO SCH ×3 (08:04→16:19)
[2023-07-15] MEDS ORDERED: VANCOMYCIN 1 GM in IV D5W 250ml IV ONE (11:00)
[2023-07-15 11:04] LABS: CALCIUM, SERUM 9.4 mg/dL (8.5-10.1); POTASSIUM 4.2 mmol/L (3.5-5.1)
[2023-07-15 11:07] LABS: *SPE A/G RATIO 0.4 (0.7-1.7); *SPE ALBUMIN 2.8 g/dL (2.9-4.4); *SPE ALPHA-1-GLOBULIN 0.2 g/dL (0.0-0.4); *SPE ALPHA-2-GLOBULIN 0.6 g/dL (0.4-1.0); *SPE BETA GLOBULIN 1.2 g/dL (0.7-1.3); *SPE GLOBULIN, TOTAL 6.9 g/dL (2.2-3.9); *SPE M-SPIKE Not Observed g/dL (Not Observed); *SPE PROTEIN TOTAL 9.7 g/dL (6.0-8.5); *SPEGAMMA GLOBULIN 4.9 g/dL (0.4-1.8)
[2023-07-15 11:10] LABS: ALBUMIN 2.2 g/dL (3.4-5.0); BILIRUBIN,TOTAL 0.4 mg/dL (0.2-1.0); TOTAL PROTEIN, SERUM 10.1 g/dL (6.4-8.2)
[2023-07-15] MEDS: ZOSYN IVPB 3.375 G in IV D5W 50ml IV SCH ×2 (12:04→17:27)
[2023-07-15] MEDS: ENOXAPARIN SODIUM 40 MG/0.4 ML DISP.SYRIN SQ SCH (20:06)
[2023-07-15] MEDS: VANCOMYCIN HCL 0.75 GM in IV D5W 250 ML IV SCH (22:30)
[2023-07-16] VITALS (14 sets, daily range): BP systolic 118–138; BP diastolic 58–75; TEMP 98.2–100.2; O2SAT 93–100
[2023-07-16] MEDS: ZOSYN IVPB 3.375 G in IV D5W 50ml IV SCH ×4 (00:07→17:16)
[2023-07-16] MEDS: ALBUTEROL HALF STRENGTH 1.25 MG/3 ML VIAL.NEB NEB SCH ×5 (01:45→19:46)
[2023-07-16] MEDS: IPRATROPIUM NEB FS 0.5 MG/2.5 ML AMPUL.NEB NEB SCH ×4 (01:45→19:46)
[2023-07-16 06:21] LABS: BASOPHILS % (AUTO) 0.2 % (0.0-2.0); EOSINOPHILS # (AUTO) 0.1 K/uL (0.0-0.7); EOSINOPHILS % (AUTO) 1.1 % (0.0-6.0); HEMATOCRIT 33 % (33-45); LYMPHOCYTES # (AUTO) 1.9 K/uL (0.8-4.8); LYMPHOCYTES % (AUTO) 15.7 % (20.0-44.0); MEAN CORPUSCULAR HEMOGLOBIN 36 PG (26.0-33.0); MEAN CORPUSCULAR HGB CONC 33 g/dl (31.0-36.0); MEAN CORPUSCULAR VOLUME 108 fL (82-100); MONOCYTES # (AUTO) 1.4 K/uL (0.1-1.30); MONOCYTES % (AUTO) 11.3 % (2.0-12.0); NEUTROPHILS # (AUTO) 8.8 K/uL (1.8-8.9); NEUTROPHILS % (AUTO) 71.7 % (43.0-81.0); PLATELET COUNT (AUTO) 180 K/uL (150-450); RED BLOOD CELL COUNT(AUTO) 3.07 MIL/uL (4.0-5.2); RED CELL DISTRIBUTION WIDTH 16.4 % (11.5-15.0); WHITE BLOOD COUNT (AUTO) 12.3 K/uL (4.3-11.0)
[2023-07-16 06:38] LABS: CALCIUM, SERUM 9.5 mg/dL (8.5-10.1); CARBON DIOXIDE 30 mmol/L (21-32); CHLORIDE 103 mmol/L (98-107); GLUCOSE 164 mg/dL (74-106); MAGNESIUM 1.8 mg/dL (1.8-2.4); PHOSPHORUS 3.1 mg/dL (2.5-4.9); SODIUM SERUM 136 mmol/L (136-145); UREA NITROGEN, BLOOD 35 mg/dL (7-18)
[2023-07-16] MEDS: ACETAMINOPHEN 325 MG TABLET PO PRN (07:30)
[2023-07-16] MEDS: QUETIAPINE FUMARATE 25 MG TABLET PO SCH ×3 (08:06→20:20)
[2023-07-16] MEDS: DIVALPROEX SODIUM 250 MG TABLET.DR PO SCH ×3 (08:06→16:11)
[2023-07-16] MEDS: predniSONE 20 MG TABLET PO SCH (08:06)
[2023-07-16] MEDS: Z GUARD REMEDY 4 OZ OINT TP SCH (08:10)
[2023-07-16] MEDS: ENSURE ENLIVE 237 ML LIQUID (VANILLA) PO SCH (08:10)
[2023-07-16] MEDS: VANCOMYCIN HCL 0.75 GM in IV D5W 250 ML IV SCH (10:04)
[2023-07-16 14:30] LABS: INR 1.07 (0.91-1.10); PARTIAL THROMBOPLASTIN TIME 27.6 SEC (24.3-34.3); PROTHROMBIN TIME 11.2 SECS (9.2-11.1)
[2023-07-16 15:10] LABS: ABG BASE EXCESS 3.2 mmol/L; ABG OXYGEN SATURATION 94.1 % (92.0-98.5); ABG PCO2 40.3 mmHg (35.0-45.0); ABG PO2 73.6 mmHg (75.0-100.0); ABG TOTAL HEMOGLOBIN 11.3 G/dL (12.0-16.0); AaDO2 107.4 mmHg; COHb 0.3 % (0.5-1.5); MetHb 0.3 % (0.0-1.5); O2Hb 93.5 % (94.0-97.0); SITE, ABG Right Radial; VENT MODE, BG N/C 32%
[2023-07-16] MEDS: MORPHINE SULFATE INJ 2 MG/ML DISP.SYRIN IV PRN (16:28)
[2023-07-17] VITALS (12 sets, daily range): BP systolic 96–127; BP diastolic 58–78; TEMP 98–99.3; O2SAT 94–100
[2023-07-17] MEDS: VANCOMYCIN HCL 0.75 GM in IV D5W 250 ML IV SCH ×3 (00:26→23:06)
[2023-07-17] MEDS: ZOSYN IVPB 3.375 G in IV D5W 50ml IV SCH ×4 (01:24→17:18)
[2023-07-17] MEDS: IPRATROPIUM NEB FS 0.5 MG/2.5 ML AMPUL.NEB NEB SCH ×5 (01:30→19:44)
[2023-07-17] MEDS: ALBUTEROL HALF STRENGTH 1.25 MG/3 ML VIAL.NEB NEB SCH ×5 (01:30→19:44)
[2023-07-17 06:00] LABS: BASOPHILS % (AUTO) 0.4 % (0.0-2.0); EOSINOPHILS # (AUTO) 0.3 K/uL (0.0-0.7); EOSINOPHILS % (AUTO) 2.4 % (0.0-6.0); HEMATOCRIT 33 % (33-45); HEMOGLOBIN 10.7 g/dL (11.5-14.8); LYMPHOCYTES # (AUTO) 2.1 K/uL (0.8-4.8); LYMPHOCYTES % (AUTO) 17.6 % (20.0-44.0); MEAN CORPUSCULAR HEMOGLOBIN 35 PG (26.0-33.0); MEAN CORPUSCULAR HGB CONC 33 g/dl (31.0-36.0); MEAN CORPUSCULAR VOLUME 107 fL (82-100); MONOCYTES # (AUTO) 1.4 K/uL (0.1-1.30); MONOCYTES % (AUTO) 11.3 % (2.0-12.0); NEUTROPHILS # (AUTO) 8.3 K/uL (1.8-8.9); NEUTROPHILS % (AUTO) 68.3 % (43.0-81.0); PLATELET COUNT (AUTO) 190 K/uL (150-450); RED BLOOD CELL COUNT(AUTO) 3.04 MIL/uL (4.0-5.2); RED CELL DISTRIBUTION WIDTH 15.9 % (11.5-15.0); WHITE BLOOD COUNT (AUTO) 12.2 K/uL (4.3-11.0)
[2023-07-17 06:15] LABS: INR 1.04 (0.91-1.10); PARTIAL THROMBOPLASTIN TIME 26.9 SEC (24.3-34.3); PROTHROMBIN TIME 10.9 SECS (9.2-11.1)
[2023-07-17 06:21] LABS: CALCIUM, SERUM 9.4 mg/dL (8.5-10.1); CARBON DIOXIDE 31 mmol/L (21-32); CHLORIDE 102 mmol/L (98-107); CREATININE 0.9 mg/dL (0.6-1.3); GLUCOSE 141 mg/dL (74-106); MAGNESIUM 1.4 mg/dL (1.8-2.4); PHOSPHORUS 3.3 mg/dL (2.5-4.9); POTASSIUM 4.2 mmol/L (3.5-5.1); SODIUM SERUM 136 mmol/L (136-145); UREA NITROGEN, BLOOD 32 mg/dL (7-18)
[2023-07-17] MEDS: ENSURE ENLIVE 237 ML LIQUID (VANILLA) PO SCH (08:00)
[2023-07-17] MEDS: predniSONE 20 MG TABLET PO SCH (08:44)
[2023-07-17] MEDS: QUETIAPINE FUMARATE 25 MG TABLET PO SCH ×3 (08:44→21:53)
[2023-07-17] MEDS: DIVALPROEX SODIUM 250 MG TABLET.DR PO SCH ×3 (08:44→17:17)
[2023-07-17] MEDS: Z GUARD REMEDY 4 OZ OINT TP SCH (08:45)
[2023-07-17] MEDS ORDERED: NALOXONE PREFILLED SYRINGE 2 MG/2 ML SYRINGE IV PRN (10:30)
[2023-07-17] MEDS ORDERED: FLUMAZENIL 0.5 MG VIAL IV PRN (10:30)
[2023-07-17] MEDS ORDERED: MIDAZOLAM HCL 2 MG/2ML VIAL IV PRN (10:30)
[2023-07-17] MEDS ORDERED: FENTANYL PF 250MCG/5ML AMPUL IV PRN (10:30)
[2023-07-17] MEDS ORDERED: MAGNESIUM OXIDE 400 MG TABLET PO ONE ×2 (11:30→12:30)
[2023-07-17 19:22] LABS: IRON, SERUM 23 ug/dl (50-175); TOTAL IRON BINDING CAPACITY 189 ug/dl (250-450)
[2023-07-17 19:55] LABS: FERRITIN 399 ng/mL (8-388)
[2023-07-18] VITALS (14 sets, daily range): BP systolic 100–111; BP diastolic 51–58; TEMP 97.4–100.9; O2SAT 91–98
[2023-07-18] MEDS: ZOSYN IVPB 3.375 G in IV D5W 50ml IV SCH ×4 (00:25→17:34)
[2023-07-18] MEDS: ALBUTEROL HALF STRENGTH 1.25 MG/3 ML VIAL.NEB NEB SCH ×5 (01:19→19:35)
[2023-07-18] MEDS: IPRATROPIUM NEB FS 0.5 MG/2.5 ML AMPUL.NEB NEB SCH ×4 (01:19→19:35)
[2023-07-18 07:44] LABS: BASOPHILS % (AUTO) 0.2 % (0.0-2.0); EOSINOPHILS # (AUTO) 0.1 K/uL (0.0-0.7); EOSINOPHILS % (AUTO) 1.4 % (0.0-6.0); HEMATOCRIT 31 % (33-45); HEMOGLOBIN 10.4 g/dL (11.5-14.8); LYMPHOCYTES # (AUTO) 2.2 K/uL (0.8-4.8); LYMPHOCYTES % (AUTO) 26.5 % (20.0-44.0); MEAN CORPUSCULAR HEMOGLOBIN 36 PG (26.0-33.0); MEAN CORPUSCULAR HGB CONC 33 g/dl (31.0-36.0); MEAN CORPUSCULAR VOLUME 108 fL (82-100); MONOCYTES # (AUTO) 0.8 K/uL (0.1-1.30); NEUTROPHILS # (AUTO) 5.1 K/uL (1.8-8.9); NEUTROPHILS % (AUTO) 61.9 % (43.0-81.0); PLATELET COUNT (AUTO) 176 K/uL (150-450); RED BLOOD CELL COUNT(AUTO) 2.91 MIL/uL (4.0-5.2); RED CELL DISTRIBUTION WIDTH 15.5 % (11.5-15.0); WHITE BLOOD COUNT (AUTO) 8.3 K/uL (4.3-11.0)
[2023-07-18 07:58] LABS: CALCIUM, SERUM 9.4 mg/dL (8.5-10.1); MAGNESIUM 1.8 mg/dL (1.8-2.4); POTASSIUM 4.1 mmol/L (3.5-5.1)
[2023-07-18] MEDS: ENSURE ENLIVE 237 ML LIQUID (VANILLA) PO SCH ×3 (08:32→16:27)
[2023-07-18] MEDS: DIVALPROEX SODIUM 250 MG TABLET.DR PO SCH ×3 (08:59→16:27)
[2023-07-18] MEDS: predniSONE 20 MG TABLET PO SCH (08:59)
[2023-07-18] MEDS: Z GUARD REMEDY 4 OZ OINT TP SCH (09:00)
[2023-07-18] MEDS: QUETIAPINE FUMARATE 25 MG TABLET PO SCH ×3 (09:00→20:27)
[2023-07-18 11:07] LABS: FOLIC ACID 10.9 ng/mL (>3.0)
[2023-07-18] MEDS: VANCOMYCIN HCL 0.75 GM in IV D5W 250 ML IV SCH ×2 (11:20→23:00)
[2023-07-18 12:07] LABS: FREE KAPPA LT CHAINS SERUM 137.8 mg/L (3.3-19.4); FREE LAMBDA LT CHAIN SERUM 118.5 mg/L (5.7-26.3); KAPPA/LAMBDA RATIO SERUM 1.16 (0.26-1.65)
[2023-07-18] MEDS: ACETAMINOPHEN 325 MG TABLET PO PRN (20:27)
[2023-07-19] VITALS (14 sets, daily range): BP systolic 101–119; BP diastolic 58–68; TEMP 97.7–98.4; O2SAT 95–99
[2023-07-19] MEDS: ZOSYN IVPB 3.375 G in IV D5W 50ml IV SCH ×5 (00:21→23:24)
[2023-07-19] MEDS: IPRATROPIUM NEB FS 0.5 MG/2.5 ML AMPUL.NEB NEB SCH ×4 (01:24→20:29)
[2023-07-19] MEDS: ALBUTEROL HALF STRENGTH 1.25 MG/3 ML VIAL.NEB NEB SCH ×4 (01:24→20:29)
[2023-07-19 06:28] LABS: BASOPHILS % (AUTO) 0.2 % (0.0-2.0); EOSINOPHILS % (AUTO) 0.1 % (0.0-6.0); HEMATOCRIT 28 % (33-45); HEMOGLOBIN 9.6 g/dL (11.5-14.8); LYMPHOCYTES # (AUTO) 1.4 K/uL (0.8-4.8); LYMPHOCYTES % (AUTO) 15.3 % (20.0-44.0); MEAN CORPUSCULAR HEMOGLOBIN 36 PG (26.0-33.0); MEAN CORPUSCULAR HGB CONC 34 g/dl (31.0-36.0); MEAN CORPUSCULAR VOLUME 106 fL (82-100); MONOCYTES # (AUTO) 0.7 K/uL (0.1-1.30); MONOCYTES % (AUTO) 7.8 % (2.0-12.0); NEUTROPHILS % (AUTO) 76.6 % (43.0-81.0); PLATELET COUNT (AUTO) 178 K/uL (150-450); RED BLOOD CELL COUNT(AUTO) 2.67 MIL/uL (4.0-5.2); RED CELL DISTRIBUTION WIDTH 15.6 % (11.5-15.0); WHITE BLOOD COUNT (AUTO) 9.1 K/uL (4.3-11.0)
[2023-07-19 06:47] LABS: CALCIUM, SERUM 9.2 mg/dL (8.5-10.1); CARBON DIOXIDE 33 mmol/L (21-32); CHLORIDE 100 mmol/L (98-107); GLUCOSE 304 mg/dL (74-106); MAGNESIUM 1.6 mg/dL (1.8-2.4); PHOSPHORUS 2.8 mg/dL (2.5-4.9); POTASSIUM 4.3 mmol/L (3.5-5.1); SODIUM SERUM 134 mmol/L (136-145); UREA NITROGEN, BLOOD 33 mg/dL (7-18)
[2023-07-19] MEDS: Z GUARD REMEDY 4 OZ OINT TP SCH (08:57)
[2023-07-19] MEDS: ENSURE ENLIVE 237 ML LIQUID (VANILLA) PO SCH ×3 (08:57→17:00)
[2023-07-19] MEDS: predniSONE 5 MG TABLET PO SCH (08:58)
[2023-07-19] MEDS: DIVALPROEX SODIUM 250 MG TABLET.DR PO SCH ×3 (08:58→16:59)
[2023-07-19] MEDS: QUETIAPINE FUMARATE 25 MG TABLET PO SCH ×3 (08:58→20:38)
[2023-07-19 09:40] LABS: BAND % (MANUAL) 5 % (0.0-5.0); LYMPHOCYTES % (MANUAL) 18 % (16-48); MONOCYTES % (MANUAL) 4 % (0-11.0); MYELOCYTES % 1 % (0-0); NEUTROPHILS % (MANUAL) 72 (42-76); PLATELET ESTIMATE ADEQUATE
[2023-07-19 09:41] LABS: ANISOCYTOSIS 1+; HYPOCHROMASIA 1+
[2023-07-19] MEDS: VANCOMYCIN HCL 0.75 GM in IV D5W 250 ML IV SCH (10:20)
[2023-07-19] MEDS: VANCOMYCIN 500 MG in IV D5W 100ml IV SCH ×3 (10:21→23:00)
[2023-07-19] MEDS ORDERED: MAGNESIUM OXIDE 400 MG TABLET PO ONE (10:30)
[2023-07-19] MEDS: ACETAMINOPHEN 325 MG TABLET PO PRN (17:00)
[2023-07-20] VITALS (13 sets, daily range): BP systolic 115–140; BP diastolic 53–87; TEMP 98–99.5; O2SAT 94–99
[2023-07-20] MEDS: IPRATROPIUM NEB FS 0.5 MG/2.5 ML AMPUL.NEB NEB SCH ×4 (02:01→20:11)
[2023-07-20] MEDS: ALBUTEROL HALF STRENGTH 1.25 MG/3 ML VIAL.NEB NEB SCH ×4 (02:01→20:11)
[2023-07-20] MEDS: ZOSYN IVPB 3.375 G in IV D5W 50ml IV SCH ×3 (05:15→18:00)
[2023-07-20 06:08] LABS: BASOPHILS % (AUTO) 0.5 % (0.0-2.0); EOSINOPHILS # (AUTO) 0.1 K/uL (0.0-0.7); EOSINOPHILS % (AUTO) 1.2 % (0.0-6.0); HEMATOCRIT 33 % (33-45); LYMPHOCYTES # (AUTO) 2.1 K/uL (0.8-4.8); LYMPHOCYTES % (AUTO) 20.4 % (20.0-44.0); MEAN CORPUSCULAR HEMOGLOBIN 36 PG (26.0-33.0); MEAN CORPUSCULAR HGB CONC 34 g/dl (31.0-36.0); MEAN CORPUSCULAR VOLUME 106 fL (82-100); MONOCYTES # (AUTO) 1.2 K/uL (0.1-1.30); MONOCYTES % (AUTO) 11.2 % (2.0-12.0); NEUTROPHILS # (AUTO) 6.9 K/uL (1.8-8.9); NEUTROPHILS % (AUTO) 66.7 % (43.0-81.0); PLATELET COUNT (AUTO) 157 K/uL (150-450); RED BLOOD CELL COUNT(AUTO) 3.07 MIL/uL (4.0-5.2); RED CELL DISTRIBUTION WIDTH 15.6 % (11.5-15.0); WHITE BLOOD COUNT (AUTO) 10.4 K/uL (4.3-11.0)
[2023-07-20 06:49] LABS: CALCIUM, SERUM 9.5 mg/dL (8.5-10.1); CREATININE 0.9 mg/dL (0.6-1.3); MAGNESIUM 1.8 mg/dL (1.8-2.4); PHOSPHORUS 2.2 mg/dL (2.5-4.9); POTASSIUM 3.9 mmol/L (3.5-5.1)
[2023-07-20] MEDS: ENSURE ENLIVE 237 ML LIQUID (VANILLA) PO SCH ×3 (08:25→16:14)
[2023-07-20] MEDS: Z GUARD REMEDY 4 OZ OINT TP SCH (08:25)
[2023-07-20] MEDS: QUETIAPINE FUMARATE 25 MG TABLET PO SCH ×3 (08:29→21:35)
[2023-07-20] MEDS: DIVALPROEX SODIUM 250 MG TABLET.DR PO SCH ×3 (08:30→16:27)
[2023-07-20] MEDS: predniSONE 5 MG TABLET PO SCH (08:30)
[2023-07-20] MEDS: MORPHINE SULFATE INJ 2 MG/ML DISP.SYRIN IV PRN (08:34)
[2023-07-20] MEDS ORDERED: K PHOS NEUTRAL 250 MG TABLET PO ONE (11:00)
[2023-07-20] MEDS: VANCOMYCIN 500 MG in IV D5W 100ml IV SCH ×2 (11:11→22:28)
[2023-07-21] VITALS (14 sets, daily range): BP systolic 109–127; BP diastolic 37–56; TEMP 98.4–100.9; O2SAT 94–99
[2023-07-21] MEDS: ZOSYN IVPB 3.375 G in IV D5W 50ml IV SCH ×3 (00:09→13:09)
[2023-07-21] MEDS: ALBUTEROL HALF STRENGTH 1.25 MG/3 ML VIAL.NEB NEB SCH ×4 (01:42→20:10)
[2023-07-21] MEDS: IPRATROPIUM NEB FS 0.5 MG/2.5 ML AMPUL.NEB NEB SCH ×4 (01:43→20:10)
[2023-07-21] MEDS: ACETAMINOPHEN 325 MG TABLET PO PRN (05:22)
[2023-07-21 07:47] LABS: BASOPHILS % (AUTO) 0.3 % (0.0-2.0); EOSINOPHILS # (AUTO) 0.1 K/uL (0.0-0.7); HEMATOCRIT 28 % (33-45); HEMOGLOBIN 9.4 g/dL (11.5-14.8); LYMPHOCYTES # (AUTO) 2.1 K/uL (0.8-4.8); LYMPHOCYTES % (AUTO) 17.4 % (20.0-44.0); MEAN CORPUSCULAR HEMOGLOBIN 35 PG (26.0-33.0); MEAN CORPUSCULAR HGB CONC 33 g/dl (31.0-36.0); MEAN CORPUSCULAR VOLUME 106 fL (82-100); MONOCYTES # (AUTO) 1.4 K/uL (0.1-1.30); NEUTROPHILS # (AUTO) 8.4 K/uL (1.8-8.9); NEUTROPHILS % (AUTO) 69.3 % (43.0-81.0); PLATELET COUNT (AUTO) 176 K/uL (150-450); RED BLOOD CELL COUNT(AUTO) 2.66 MIL/uL (4.0-5.2); RED CELL DISTRIBUTION WIDTH 15.9 % (11.5-15.0); WHITE BLOOD COUNT (AUTO) 12.1 K/uL (4.3-11.0)
[2023-07-21 08:07] LABS: MAGNESIUM 1.6 mg/dL (1.8-2.4); PHOSPHORUS 2.9 mg/dL (2.5-4.9)
[2023-07-21] MEDS ORDERED: MAGNESIUM OXIDE 400 MG TABLET PO ONE (09:00)
[2023-07-21] MEDS: predniSONE 5 MG TABLET PO SCH (09:23)
[2023-07-21] MEDS: Z GUARD REMEDY 4 OZ OINT TP SCH (09:23)
[2023-07-21] MEDS: DIVALPROEX SODIUM 250 MG TABLET.DR PO SCH ×3 (09:23→16:38)
[2023-07-21] MEDS: QUETIAPINE FUMARATE 25 MG TABLET PO SCH ×3 (09:23→21:50)
[2023-07-21] MEDS: ENSURE ENLIVE 237 ML LIQUID (VANILLA) PO SCH ×3 (09:25→16:39)
[2023-07-21] MEDS: FERROUS SULFATE (325 MG) 325 MG/TAB TABLET PO SCH (10:08)
[2023-07-21 10:44] LABS: APPEARANCE,URINE CLEAR (CLEAR); BILIRUBIN,URINE NEGATIVE (NEGATIVE); BLOOD, URINE NEGATIVE Ery/uL (NEGATIVE); COLOR,URINE YELLOW (YELLOW); KETONES,URINE TRACE mg/dL (NEGATIVE); LEUKOCYTE ESTERASE ,URINE NEGATIVE (NEGATIVE); NITRITE, URINE NEGATIVE (NEGATIVE); PH,URINE 7.5 (5.0-8.0); PROTEIN,URINE TRACE mg/dl (NEGATIVE); UGLUCOSE TRACE mg/dL (NEGATIVE); UROBILINOGEN,URINE 0.2 EU/dL (0.2)
[2023-07-21 11:33] LABS: ADD URINE CULTURE NO; BACTERIA,URINE None seen /HPF (None Seen); RBC,URINE 0-2 /HPF (0-2); SQUAMOUS EPITHELIAL CELL,UR Few /HPF (None Seen); WBC,URINE 0-2 /HPF (0-3)
[2023-07-21] MEDS: VANCOMYCIN 500 MG in IV D5W 100ml IV SCH ×2 (12:04→21:55)
[2023-07-21] MEDS: CEFTRIAXONE 2 G in IV D5W 100 ML IV SCH (13:54)
[2023-07-21] MEDS: MORPHINE SULFATE INJ 2 MG/ML DISP.SYRIN IV PRN (16:44)
[2023-07-21 23:33] LABS: ANISOCYTOSIS 1+; BASOPHILS % (MANUAL) 0 % (0.0-2.0); EOSINOPHILS % (MANUAL) 5 % (0-4); LYMPHOCYTES % (MANUAL) 24 % (16-48); MONOCYTES % (MANUAL) 10 % (0-11.0); NEUTROPHILS % (MANUAL) 61 (42-76); PLATELET ESTIMATE ADEQUATE
[2023-07-22] VITALS (12 sets, daily range): BP systolic 122–137; BP diastolic 55–69; TEMP 98.1–98.4; O2SAT 94–99
[2023-07-22] MEDS: ALBUTEROL HALF STRENGTH 1.25 MG/3 ML VIAL.NEB NEB SCH ×4 (02:05→20:29)
[2023-07-22] MEDS: IPRATROPIUM NEB FS 0.5 MG/2.5 ML AMPUL.NEB NEB SCH ×4 (02:05→20:29)
[2023-07-22 05:47] LABS: BASOPHILS % (AUTO) 0.4 % (0.0-2.0); EOSINOPHILS # (AUTO) 0.2 K/uL (0.0-0.7); EOSINOPHILS % (AUTO) 1.4 % (0.0-6.0); HEMATOCRIT 28 % (33-45); HEMOGLOBIN 9.5 g/dL (11.5-14.8); LYMPHOCYTES # (AUTO) 2.1 K/uL (0.8-4.8); MEAN CORPUSCULAR HEMOGLOBIN 36 PG (26.0-33.0); MEAN CORPUSCULAR HGB CONC 34 g/dl (31.0-36.0); MEAN CORPUSCULAR VOLUME 105 fL (82-100); MONOCYTES % (AUTO) 9.6 % (2.0-12.0); NEUTROPHILS # (AUTO) 7.5 K/uL (1.8-8.9); NEUTROPHILS % (AUTO) 69.6 % (43.0-81.0); PLATELET COUNT (AUTO) 181 K/uL (150-450); RED BLOOD CELL COUNT(AUTO) 2.65 MIL/uL (4.0-5.2); RED CELL DISTRIBUTION WIDTH 15.5 % (11.5-15.0); WHITE BLOOD COUNT (AUTO) 10.8 K/uL (4.3-11.0)
[2023-07-22 05:59] LABS: CALCIUM, SERUM 9.5 mg/dL (8.5-10.1); CREATININE 0.9 mg/dL (0.6-1.3); MAGNESIUM 1.6 mg/dL (1.8-2.4); PHOSPHORUS 3.7 mg/dL (2.5-4.9); POTASSIUM 4.3 mmol/L (3.5-5.1)
[2023-07-22] MEDS: MORPHINE SULFATE INJ 2 MG/ML DISP.SYRIN IV PRN (06:39)
[2023-07-22] MEDS: ENSURE ENLIVE 237 ML LIQUID (VANILLA) PO SCH ×3 (08:53→17:07)
[2023-07-22] MEDS: Z GUARD REMEDY 4 OZ OINT TP SCH (08:54)
[2023-07-22] MEDS: predniSONE 5 MG TABLET PO SCH (08:59)
[2023-07-22] MEDS: QUETIAPINE FUMARATE 25 MG TABLET PO SCH ×3 (08:59→20:27)
[2023-07-22] MEDS: FERROUS SULFATE (325 MG) 325 MG/TAB TABLET PO SCH (08:59)
[2023-07-22] MEDS: DIVALPROEX SODIUM 250 MG TABLET.DR PO SCH ×3 (08:59→16:24)
[2023-07-22] MEDS: ACETAMINOPHEN 325 MG TABLET PO PRN (09:53)
[2023-07-22] MEDS: VANCOMYCIN 500 MG in IV D5W 100ml IV SCH ×2 (11:48→23:00)
[2023-07-22] MEDS ORDERED: MAGNESIUM OXIDE 400 MG TABLET PO ONE (12:00)
[2023-07-22] MEDS: CEFTRIAXONE 2 G in IV D5W 100 ML IV SCH (13:04)
[2023-07-23] VITALS (12 sets, daily range): BP systolic 108–131; BP diastolic 46–67; TEMP 97.9–98.7; O2SAT 94–99
[2023-07-23] MEDS: VANCOMYCIN 500 MG in IV D5W 100ml IV SCH ×3 (00:40→23:29)
[2023-07-23] MEDS: IPRATROPIUM NEB FS 0.5 MG/2.5 ML AMPUL.NEB NEB SCH ×4 (02:28→19:51)
[2023-07-23] MEDS: ALBUTEROL HALF STRENGTH 1.25 MG/3 ML VIAL.NEB NEB SCH ×4 (02:28→19:51)
[2023-07-23] MEDS: ENSURE ENLIVE 237 ML LIQUID (VANILLA) PO SCH ×3 (08:10→17:29)
[2023-07-23] MEDS: DIVALPROEX SODIUM 250 MG TABLET.DR PO SCH ×3 (08:10→17:29)
[2023-07-23] MEDS: predniSONE 5 MG TABLET PO SCH (08:11)
[2023-07-23] MEDS: FERROUS SULFATE (325 MG) 325 MG/TAB TABLET PO SCH (08:11)
[2023-07-23] MEDS: QUETIAPINE FUMARATE 25 MG TABLET PO SCH ×3 (08:11→20:16)
[2023-07-23] MEDS: Z GUARD REMEDY 4 OZ OINT TP SCH (08:29)
[2023-07-23] MEDS: MORPHINE SULFATE INJ 2 MG/ML DISP.SYRIN IV PRN (09:07)
[2023-07-23] MEDS ORDERED: HYDROCODONE/APAP 5/325MG TABLET PO PRN (10:30)
[2023-07-23] MEDS: MAGNESIUM OXIDE 400 MG TABLET PO SCH ×2 (13:22→22:35)
[2023-07-23] MEDS: CEFTRIAXONE 2 G in IV D5W 100 ML IV SCH (13:22)
[2023-07-24] VITALS (11 sets, daily range): BP systolic 94–136; BP diastolic 50–68; TEMP 98–98.9; O2SAT 89–99
[2023-07-24] MEDS: IPRATROPIUM NEB FS 0.5 MG/2.5 ML AMPUL.NEB NEB SCH ×4 (01:15→19:43)
[2023-07-24] MEDS: ALBUTEROL HALF STRENGTH 1.25 MG/3 ML VIAL.NEB NEB SCH ×4 (01:15→19:43)
[2023-07-24 07:26] LABS: BASOPHILS % (AUTO) 0.4 % (0.0-2.0); EOSINOPHILS # (AUTO) 0.2 K/uL (0.0-0.7); EOSINOPHILS % (AUTO) 1.7 % (0.0-6.0); HEMATOCRIT 29 % (33-45); HEMOGLOBIN 9.9 g/dL (11.5-14.8); LYMPHOCYTES # (AUTO) 1.8 K/uL (0.8-4.8); LYMPHOCYTES % (AUTO) 16.6 % (20.0-44.0); MEAN CORPUSCULAR HEMOGLOBIN 36 PG (26.0-33.0); MEAN CORPUSCULAR HGB CONC 34 g/dl (31.0-36.0); MEAN CORPUSCULAR VOLUME 105 fL (82-100); MONOCYTES # (AUTO) 1.5 K/uL (0.1-1.30); MONOCYTES % (AUTO) 14.4 % (2.0-12.0); NEUTROPHILS # (AUTO) 7.2 K/uL (1.8-8.9); NEUTROPHILS % (AUTO) 66.9 % (43.0-81.0); PLATELET COUNT (AUTO) 199 K/uL (150-450); RED BLOOD CELL COUNT(AUTO) 2.76 MIL/uL (4.0-5.2); RED CELL DISTRIBUTION WIDTH 16.1 % (11.5-15.0); WHITE BLOOD COUNT (AUTO) 10.7 K/uL (4.3-11.0)
[2023-07-24 07:51] LABS: CALCIUM, SERUM 9.5 mg/dL (8.5-10.1); CARBON DIOXIDE 32 mmol/L (21-32); CHLORIDE 97 mmol/L (98-107); CREATININE 0.9 mg/dL (0.6-1.3); GLUCOSE 133 mg/dL (74-106); POTASSIUM 4.1 mmol/L (3.5-5.1); SODIUM SERUM 132 mmol/L (136-145); UREA NITROGEN, BLOOD 27 mg/dL (7-18)
[2023-07-24] MEDS: ENSURE ENLIVE 237 ML LIQUID (VANILLA) PO SCH ×3 (08:05→16:04)
[2023-07-24] MEDS: Z GUARD REMEDY 4 OZ OINT TP SCH (08:06)
[2023-07-24] MEDS: QUETIAPINE FUMARATE 25 MG TABLET PO SCH ×3 (08:06→21:22)
[2023-07-24] MEDS: FERROUS SULFATE (325 MG) 325 MG/TAB TABLET PO SCH (08:06)
[2023-07-24] MEDS: DIVALPROEX SODIUM 250 MG TABLET.DR PO SCH ×3 (08:06→16:04)
[2023-07-24] MEDS: predniSONE 5 MG TABLET PO SCH (09:59)
[2023-07-24] MEDS: VANCOMYCIN 500 MG in IV D5W 100ml IV SCH (11:20)
[2023-07-24] MEDS: CEFTRIAXONE 2 G in IV D5W 100 ML IV SCH (13:30)
[2023-07-24] MEDS: MAGNESIUM OXIDE 400 MG TABLET PO SCH (21:22)
[2023-07-25] VITALS (12 sets, daily range): BP systolic 107–121; BP diastolic 43–56; TEMP 97.9–98.4; O2SAT 94–100
[2023-07-25] MEDS: VANCOMYCIN 500 MG in IV D5W 100ml IV SCH ×3 (00:13→22:10)
[2023-07-25] MEDS: ALBUTEROL HALF STRENGTH 1.25 MG/3 ML VIAL.NEB NEB SCH ×4 (01:44→19:38)
[2023-07-25] MEDS: IPRATROPIUM NEB FS 0.5 MG/2.5 ML AMPUL.NEB NEB SCH ×4 (01:44→19:38)
[2023-07-25 08:55] LABS: CALCIUM, SERUM 9.8 mg/dL (8.5-10.1); CARBON DIOXIDE 32 mmol/L (21-32); CHLORIDE 100 mmol/L (98-107); CREATININE 0.9 mg/dL (0.6-1.3); GLUCOSE 134 mg/dL (74-106); POTASSIUM 4.1 mmol/L (3.5-5.1); SODIUM SERUM 135 mmol/L (136-145); UREA NITROGEN, BLOOD 32 mg/dL (7-18)
[2023-07-25] MEDS: QUETIAPINE FUMARATE 25 MG TABLET PO SCH ×3 (09:34→20:29)
[2023-07-25] MEDS: DIVALPROEX SODIUM 250 MG TABLET.DR PO SCH ×3 (09:35→16:35)
[2023-07-25] MEDS: FERROUS SULFATE (325 MG) 325 MG/TAB TABLET PO SCH (09:35)
[2023-07-25] MEDS: Z GUARD REMEDY 4 OZ OINT TP SCH (09:36)
[2023-07-25] MEDS: ENSURE ENLIVE 237 ML LIQUID (VANILLA) PO SCH ×3 (09:38→17:26)
[2023-07-25] MEDS: predniSONE 5 MG TABLET PO SCH (09:40)
[2023-07-25] MEDS: CEFTRIAXONE 2 G in IV D5W 100 ML IV SCH (14:06)
[2023-07-25] MEDS: MAGNESIUM OXIDE 400 MG TABLET PO SCH (21:12)
[2023-07-26] VITALS (12 sets, daily range): BP systolic 112–134; BP diastolic 56–67; TEMP 98–99.3; O2SAT 94–100
[2023-07-26] MEDS: IPRATROPIUM NEB FS 0.5 MG/2.5 ML AMPUL.NEB NEB SCH ×4 (01:29→20:27)
[2023-07-26] MEDS: ALBUTEROL HALF STRENGTH 1.25 MG/3 ML VIAL.NEB NEB SCH ×4 (01:29→20:27)
[2023-07-26 06:33] LABS: CALCIUM, SERUM 9.5 mg/dL (8.5-10.1); CREATININE 0.8 mg/dL (0.6-1.3); PHOSPHORUS 2.9 mg/dL (2.5-4.9); POTASSIUM 4.1 mmol/L (3.5-5.1)
[2023-07-26] MEDS: ENSURE ENLIVE 237 ML LIQUID (VANILLA) PO SCH ×3 (07:46→17:17)
[2023-07-26] MEDS: QUETIAPINE FUMARATE 25 MG TABLET PO SCH ×3 (08:42→21:30)
[2023-07-26] MEDS: predniSONE 5 MG TABLET PO SCH (08:42)
[2023-07-26] MEDS: FERROUS SULFATE (325 MG) 325 MG/TAB TABLET PO SCH (08:42)
[2023-07-26] MEDS: DIVALPROEX SODIUM 250 MG TABLET.DR PO SCH ×3 (08:42→17:16)
[2023-07-26] MEDS: Z GUARD REMEDY 4 OZ OINT TP SCH (08:43)
[2023-07-26] MEDS: VANCOMYCIN 500 MG in IV D5W 100ml IV SCH ×2 (11:03→22:07)
[2023-07-26] MEDS: CEFTRIAXONE 2 G in IV D5W 100 ML IV SCH (14:22)
[2023-07-26] MEDS ORDERED: IV NS 0.9% 500 ML IV PRN (17:30)
[2023-07-26 18:46] LABS: BASOPHILS % (AUTO) 0.6 % (0.0-2.0); EOSINOPHILS # (AUTO) 0.1 K/uL (0.0-0.7); HEMATOCRIT 27 % (33-45); HEMOGLOBIN 8.9 g/dL (11.5-14.8); LYMPHOCYTES # (AUTO) 0.9 K/uL (0.8-4.8); LYMPHOCYTES % (AUTO) 14.4 % (20.0-44.0); MEAN CORPUSCULAR HEMOGLOBIN 35 PG (26.0-33.0); MEAN CORPUSCULAR HGB CONC 33 g/dl (31.0-36.0); MEAN CORPUSCULAR VOLUME 107 fL (82-100); MONOCYTES # (AUTO) 0.5 K/uL (0.1-1.30); MONOCYTES % (AUTO) 8.2 % (2.0-12.0); NEUTROPHILS # (AUTO) 4.9 K/uL (1.8-8.9); NEUTROPHILS % (AUTO) 75.8 % (43.0-81.0); RED BLOOD CELL COUNT(AUTO) 2.52 MIL/uL (4.0-5.2); RED CELL DISTRIBUTION WIDTH 15.8 % (11.5-15.0); WHITE BLOOD COUNT (AUTO) 6.4 K/uL (4.3-11.0)
[2023-07-26 20:02] LABS: PLATELET COUNT (AUTO) 200 K/uL (150-450)
[2023-07-26] MEDS: MAGNESIUM OXIDE 400 MG TABLET PO SCH (21:29)
[2023-07-26 21:33] LABS: BAND % (MANUAL) 5 % (0.0-5.0); LYMPHOCYTES % (MANUAL) 21 % (16-48); MONOCYTES % (MANUAL) 6 % (0-11.0); NEUTROPHILS % (MANUAL) 68 (42-76)
[2023-07-26 21:34] LABS: ANISOCYTOSIS 1+; PLATELET ESTIMATE ADEQUATE
[2023-07-27] VITALS (9 sets, daily range): BP systolic 98–123; BP diastolic 56–69; TEMP 98.2–98.8; O2SAT 12–100
[2023-07-27] MEDS: IPRATROPIUM NEB FS 0.5 MG/2.5 ML AMPUL.NEB NEB SCH ×3 (02:25→13:53)
[2023-07-27] MEDS: ALBUTEROL HALF STRENGTH 1.25 MG/3 ML VIAL.NEB NEB SCH ×3 (02:25→13:53)
[2023-07-27 07:32] LABS: BASOPHILS % (AUTO) 0.6 % (0.0-2.0); EOSINOPHILS # (AUTO) 0.1 K/uL (0.0-0.7); EOSINOPHILS % (AUTO) 1.9 % (0.0-6.0); HEMATOCRIT 26 % (33-45); HEMOGLOBIN 8.9 g/dL (11.5-14.8); LYMPHOCYTES # (AUTO) 2.1 K/uL (0.8-4.8); LYMPHOCYTES % (AUTO) 28.9 % (20.0-44.0); MEAN CORPUSCULAR HEMOGLOBIN 35 PG (26.0-33.0); MEAN CORPUSCULAR HGB CONC 34 g/dl (31.0-36.0); MEAN CORPUSCULAR VOLUME 104 fL (82-100); MONOCYTES # (AUTO) 1.1 K/uL (0.1-1.30); MONOCYTES % (AUTO) 14.4 % (2.0-12.0); NEUTROPHILS % (AUTO) 54.2 % (43.0-81.0); PLATELET COUNT (AUTO) 220 K/uL (150-450); RED BLOOD CELL COUNT(AUTO) 2.52 MIL/uL (4.0-5.2); RED CELL DISTRIBUTION WIDTH 15.8 % (11.5-15.0); WHITE BLOOD COUNT (AUTO) 7.4 K/uL (4.3-11.0)
[2023-07-27 07:57] LABS: CALCIUM, SERUM 9.2 mg/dL (8.5-10.1); CREATININE 0.9 mg/dL (0.6-1.3); POTASSIUM 4.1 mmol/L (3.5-5.1)
[2023-07-27] MEDS: ENSURE ENLIVE 237 ML LIQUID (VANILLA) PO SCH ×3 (09:06→17:40)
[2023-07-27] MEDS: DIVALPROEX SODIUM 250 MG TABLET.DR PO SCH ×3 (09:07→16:44)
[2023-07-27] MEDS: FERROUS SULFATE (325 MG) 325 MG/TAB TABLET PO SCH (09:07)
[2023-07-27] MEDS: QUETIAPINE FUMARATE 25 MG TABLET PO SCH ×2 (09:08→16:45)
[2023-07-27] MEDS: predniSONE 5 MG TABLET PO SCH (09:11)
[2023-07-27] MEDS: Z GUARD REMEDY 4 OZ OINT TP SCH (10:03)
[2023-07-27] MEDS: VANCOMYCIN 500 MG in IV D5W 100ml IV SCH (10:11)
[2023-07-27] MEDS ORDERED: DIVA250T4 PO (10:17)
[2023-07-27] MEDS ORDERED: PRED5TAB PO (10:17)
[2023-07-27] MEDS ORDERED: CEFT2VIA14 IV (10:17)
[2023-07-27] MEDS ORDERED: FERR325T28 PO (10:17)
[2023-07-27] MEDS ORDERED: VANC1PLA9 IV (10:17)
[2023-07-27] MEDS ORDERED: Quetiapine Fumarate PO ×2 (10:17)
[2023-07-27] MEDS: CEFTRIAXONE 2 G in IV D5W 100 ML IV SCH (14:39)
== END 2023-07-27 20:43 | DRG 178 ==
LOC: ICU 17:39 → TELE1 07-09 10:08 → MEDSG1 07-20 10:56
PROVIDERS: ADMIT Internal Medicine; ATTEND Internal Medicine
PROC: 0W9B30Z Drainage of Left Pleural Cavity with Drainage Device, Percutaneous Approach (ICD-10-PCS; principal; 2023-07-08)
PROC: 05HB33Z Insertion of Infusion Device into Right Basilic Vein, Percutaneous Approach (ICD-10-PCS; 2023-07-08)
PROC: 05HB33Z Insertion of Infusion Device into Right Basilic Vein, Percutaneous Approach (ICD-10-PCS; 2023-07-08)
PROC: 0W9B30Z Drainage of Left Pleural Cavity with Drainage Device, Percutaneous Approach (ICD-10-PCS; 2023-07-17)
DX: J86.9 Pyothorax without fistula (principal); E22.2 Syndrome of inappropriate secretion of antidiuretic hormone; J44.1 Chronic obstructive pulmonary disease with (acute) exacerbation; J94.8 Other specified pleural conditions; F41.9 Anxiety disorder, unspecified; Z87.891 Personal history of nicotine dependence; F29 Unspecified psychosis not due to a substance or known physiological condition; J44.9 Chronic obstructive pulmonary disease, unspecified; E88.09 Other disorders of plasma-protein metabolism, not elsewhere classified; Z90.710 Acquired absence of both cervix and uterus; F03.90 Unspecified dementia, unspecified severity, without behavioral disturbance, psychotic disturbance, mood disturbance, and anxiety; E83.42 Hypomagnesemia; B95.62 Methicillin resistant Staphylococcus aureus infection as the cause of diseases classified elsewhere; D50.9 Iron deficiency anemia, unspecified; D72.821 Monocytosis (symptomatic); B96.4 Proteus (mirabilis) (morganii) as the cause of diseases classified elsewhere; F31.9 Bipolar disorder, unspecified; Z73.6 Limitation of activities due to disability; R74.01 Elevation of levels of liver transaminase levels; R73.03 Prediabetes
CPT/HCPCS: 31720; 36410; 36415; 36600; 71045-TC; 71250-TC; 75989-TC; 80048-TC; 80053-TC; 80202-TC; 81001; 82378; 82607-TC; 82728-TC; 82784; 82803-TC; 83540-TC; 83605-TC; 83735-TC; 84100-TC; 84155; 84165; 84300-TC; 84443-TC; 84550-TC; 85025-TC; 85730-TC; 86334; 87040-TC; 87086-TC; 94799-TC; A4223; A6253; A6403; G0378; J0696; J1650; J2250; J2270; J2543; J2920; J3010; J3370; J3490; J7030; J7040; J7042; J7050; J7060; J7512